=== PATIENT | male | born 1970 | race African-American/Black ===

== ENCOUNTER 2018-05-02 01:05 | Emergency (ER) | payer OTHER ==
[2018-05-02] MEDS ORDERED: LIDOCAINE/EPINEPHR/TETRACAINE 5 ML BOTTLE TOPICAL ONE (01:40)
[2018-05-02] MEDS ORDERED: AMOXIC-POT CLAV 875MG STARTER 2 EACH TABLET PO STA (02:06)
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
[2018-05-02] MEDS ORDERED: LIDOCAINE 1% INJ 10MG/ML (20 ML MDV) SQ STA (02:13)
[2018-05-02 02:51] VITALS: BP 159/72; PULSE 101; RESP 15; TEMP 100
== END 2018-05-02 02:46 | disposition home or self-care (01) ==
LOC: EC 01:05
DX: S01.511A Laceration without foreign body of lip, initial encounter (principal); S01.512A Laceration without foreign body of oral cavity, initial encounter; I10 Essential (primary) hypertension; F17.200 Nicotine dependence, unspecified, uncomplicated; Z79.899 Other long term (current) drug therapy; Y04.0XXA Assault by unarmed brawl or fight, initial encounter; Y93.89 Activity, other specified
CPT/HCPCS: 99284; 12013; J2001

== ENCOUNTER 2019-06-17 09:50 | Inpatient (IN) | payer OTHER ==
[2019-06-17] MEDS ORDERED: PANTOPRAZOLE 40 MG/10 ML VIAL IVP STA (10:12)
--- NOTE | 2019-06-17 10:36 | ED ---
General Adult HPI - General Chief complaint: Recheck/Abnormal Lab/Rx Stated complaint: Low Hemoglobin Time Seen by Provider: 06/17/19 10:12 Source: patient Mode of arrival: ambulatory Limitations: no limitations - History of Present Illness Initial comments: Dictation was produced using [employer] dictation software. please excuse any grammatical, word or spelling errors. Chief Complaint: 48-year-old male past medical history of asthma and hypertension presents with abnormal outpatient labs. History of Present Illness: She is a 48-year-old male presents with abnormal outpatient labs. Patient started began approximately one week ago when he was trying to donate plasma. He had labs performed and was told that he had a very low hematocrit. He was instructed to follow-up with his primary care physician. He had labs done by his PCP. The results came back last night. Told to come to the emergency department because his hemoglobin was 5. Patient has been feeling symptomatic for the last several days. Patient denies any nausea vomiting or abdominal pain. No extremity pain. Patient denies any black or runny stools. He did have an episode of profuse diarrhea that he attributed to food poisoning recently. The ROS documented in this emergency department record has been reviewed and confirmed by me. Those systems with pertinent positive or negative responses have been documented in the HPI. All other systems are other negative and/or noncontributory. PHYSICAL EXAM: General Impression: Alert and oriented x3, not in acute distress HEENT: Normocephalic atraumatic, extra-ocular movements intact, pupils equal and reactive to light bilaterally, mucous membranes moist. Cardiovascular: Heart regular rate and rhythm, S1&S2 audible, no murmurs, rubs or gallops Chest: Lungs clear to auscultation bilaterally, no rhonchi, no wheeze, no rales Abdomen: Bowel sounds present, abdomen soft, non-tender, non-distended, no o rganomegaly Musculoskeletal: Pulses present and equal in all extremities, no peripheral edema Motor: no focal deficits noted Neurological: CN II-XII grossly intact, no focal motor or sensory deficits noted Skin: Intact with no visualized rashes Psych: Normal affect and mood Rectal: No bleeding masses noted at the rectal orifice, no palpable internal hemorrhoids ED course: 48-year-old male presents with low hemoglobin seen on outpatient lab. Positive for symptomatic anemia. At this point there is no clear source of patient's bleeding. Cervical blood is negative. Vital signs upon arrival shows heart rate of 11, blood pressure 176/89, worse vital signs within acceptable limits. Laboratory evaluation obtained. Mild leukocytosis 12.8, hemoglobin of 4.4 with a hematocrit of 17.8. Normal platelet count. Metabolic panel is unremarkable there is a lactic acidosis of 2.8. Cardiac enzymes negative. Stool occult blood is negative. This point is unclear why patient is having anemia. No netheless patient is transfused 2 units of blood. Patient otherwise seems stable at this time. This concerned that maybe patient has some sort of chronic disease or severe iron deficiency anemia. Patient be admitted to cardiac telemetry with consultation to hematology. Discussed patient case Dr. Mooney is willing to accept patients care. EKG interpretation: Ventricular rate 94, normal sinus rhythm, SD interval 174, QRS 84, QTC 4:15. No SD prolongation, no QTC prolongation, no ST or T-wave c hanges noted. Overall, this EKG is unremarkable - Related Data Home Medications Medication Instructions Recorded Confirmed Albuterol Inhaler [Ventolin Hfa 2 puff INHALATION RT-Q4H PRN 06/17/19 06/17/19 Inhaler] Atorvastatin Calcium [Lipitor] 10 mg PO DAILY 06/17/19 06/17/19 Ergocalciferol [Vitamin D2] 50,000 unit PO MO 06/17/19 06/17/19 Fluticasone Nasal [place] [Flonase 1 spray EA NOSTRIL DAILY 06/17/19 06/17/19 Nasal [place]] Loratadine [Claritin] 10 mg PO DAILY 06/17/19 06/17/19 Losartan Potassium [Cozaar] 100 mg PO DAILY 06/17/19 06/17/19 Montelukast Sodium [Singulair] 10 mg PO DAILY 06/17/19 06/17/19 amLODIPine BESYLATE 10 mg PO DAILY 06/17/19 06/17/19 Allergies Allergy/AdvReac Type Severity Reaction Status Date / Time No Known Allergies Allergy Verified 06/17/19 10:47 Review of Systems ROS Statement: Those systems with pertinent positive or pertinent negative responses have been documented in the HPI. ROS Other: All systems not noted in ROS Statement are negative. Past Medical History Past Medical History: Asthma, Hypertension Additional Past Medical History / Comment(s): gout History of Any Multi-Drug Resistant Organisms: None Reported Past Surgical History: Appendectomy Additional Past Surgical History / Comment(s): eye surgery Past Psychological History: No Psychological Hx Reported Smoking Status: Current every day smoker Past Alcohol Use History: Occasional Past Drug Use History: Marijuana General Exam Limitations: no limitations Course Vital Signs 06/17/19 06/17/19 09:56 10:26 Temperature 98.2 F Pulse Rate 101 H Respiratory 18 20 Rate Blood Pressure 176/89 O2 Sat by Pulse 100 Oximetry Medical Decision Making - Lab Data Result diagrams: 06/17/19 10:20 06/17/19 10:20 Lab Results 06/17/19 06/17/19 06/17/19 Range/Units 10:20 10:20 10:20 WBC 12.8 H (3.8-10.6) k/uL RBC 2.98 L (4.30-5.90) m/uL Hgb 4.4 L* (13.0-17.5) gm/dL Hct 17.8 L* (39.0-53.0) % MCV 59.9 L (80.0-100.0) fL MCH 14.8 L (25.0-35.0) pg MCHC 24.7 L (31.0-37.0) g/dL RDW 20.3 H (11.5-15.5) % Plt Count 425 (150-450) k/uL Neutrophils % 74 % Lymphocytes % 16 % Monocytes % 7 % Eosinophils % 1 % Basophils % 0 % Neutrophils # 9.4 H (1.3-7.7) k/uL Lymphocytes # 2.0 (1.0-4.8) k/uL Monocytes # 0.8 (0-1.0) k/uL Eosinophils # 0.2 (0-0.7) k/uL Basophils # 0.0 (0-0.2) k/uL Manual Slide Review Performed Polychromasia Present Hypochromasia Marked Poikilocytosis Slight Anisocytosis Moderate Microcytosis Marked PT 10.2 (9.0-12.0) sec INR 0.9 (<1.2) APTT 21.4 L (22.0-30.0) sec Sodium 139 (137-145) mmol/L Potassium 4.0 (3.5-5.1) mmol/L Chloride 104 (98-107) mmol/L Carbon Dioxide 23 (22-30) mmol/L Anion Gap 12 mmol/L BUN 10 (9-20) mg/dL Creatinine 0.97 (0.66-1.25) mg/dL Est GFR (CKD-EPI)AfAm >90 (>60 ml/min/1.73 sqM) Est GFR (CKD-EPI)NonAf >90 (>60 ml/min/1.73 sqM) Glucose 139 H (74-99) mg/dL Plasma Lactic Acid Elie (0.7-2.0) mmol/L Calcium 9.8 (8.4-10.2) mg/dL Magnesium 2.5 H (1.6-2.3) mg/dL Total Bilirubin 0.4 (0.2-1.3) mg/dL AST 19 (17-59) U/L ALT 23 (21-72) U/L Alkaline Phosphatase 53 (38-126) U/L Troponin I (0.000-0.034) ng/mL Total Protein 7.3 (6.3-8.2) g/dL Albumin 4.4 (3.5-5.0) g/dL Stool Occult Blood (Negative) Blood Type Blood Type Confirm Blood Type Recheck Bld Type Recheck Status Antibody Screen Crossmatch Spec Expiration Date 06/17/19 06/17/19 06/17/19 Range/Units 10:20 10:20 10:20 WBC (3.8-10.6) k/uL RBC (4.30-5.90) m/uL Hgb (13.0-17.5) gm/dL Hct (39.0-53.0) % MCV (80.0-100.0) fL MCH (25.0-35.0) pg MCHC (31.0-37.0) g/dL RDW (11.5-15.5) % Plt Count (150-450) k/uL Neutrophils % % Lymphocytes % % Monocytes % % Eosinophils % % Basophils % % Neutrophils # (1.3-7.7) k/uL Lymphocytes # (1.0-4.8) k/uL Monocytes # (0-1.0) k/uL Eosinophils # (0-0.7) k/uL Basophils # (0-0.2) k/uL Manual Slide Review Polychromasia Hypochromasia Poikilocytosis Anisocytosis Microcytosis PT (9.0-12.0) sec INR (<1.2) APTT (22.0-30.0) sec Sodium (137-145) mmol/L Potassium (3.5-5.1) mmol/L Chloride (98-107) mmol/L Carbon Dioxide (22-30) mmol/L Anion Gap mmol/L BUN (9-20) mg/dL Creatinine (0.66-1.25) mg/dL Est GFR (CKD-EPI)AfAm (>60 ml/min/1.73 sqM) Est GFR (CKD-EPI)NonAf (>60 ml/min/1.73 sqM) Glucose (74-99) mg/dL Plasma Lactic Acid Elie 2.8 H* (0.7-2.0) mmol/L Calcium (8.4-10.2) mg/dL Magnesium (1.6-2.3) mg/dL Total Bilirubin (0.2-1.3) mg/dL AST (17-59) U/L ALT (21-72) U/L Alkaline Phosphatase (38-126) U/L Troponin I <0.012 (0.000-0.034) ng/mL Total Protein (6.3-8.2) g/dL Albumin (3.5-5.0) g/dL Stool Occult Blood (Negative) Blood Type A Positive Blood Type Confirm Blood Type Recheck No Previous Record Bld Type Recheck Status CABO Indicated Antibody Screen NEGATIVE Crossmatch See Detail Spec Expiration Date 06/20/2019231906/17/19 06/17/19 Range/Units 10:35 11:40 WBC (3.8-10.6) k/uL RBC (4.30-5.90) m/uL Hgb (13.0-17.5) gm/dL Hct (39.0-53.0) % MCV (80.0-100.0) fL MCH (25.0-35.0) pg MCHC (31.0-37.0) g/dL RDW (11.5-15.5) % Plt Count (150-450) k/uL Neutrophils % % Lymphocytes % % Monocytes % % Eosinophils % % Basophils % % Neutrophils # (1.3-7.7) k/uL Lymphocytes # (1.0-4.8) k/uL Monocytes # (0-1.0) k/uL Eosinophils # (0-0.7) k/uL Basophils # (0-0.2) k/uL Manual Slide Review Polychromasia Hypochromasia Poikilocytosis Anisocytosis Microcytosis PT (9.0-12.0) sec INR (<1.2) APTT (22.0-30.0) sec Sodium (137-145) mmol/L Potassium (3.5-5.1) mmol/L Chloride (98-107) mmol/L Carbon Dioxide (22-30) mmol/L Anion Gap mmol/L BUN (9-20) mg/dL Creatinine (0.66-1.25) mg/dL Est GFR (CKD-EPI)AfAm (>60 ml/min/1.73 sqM) Est GFR (CKD-EPI)NonAf (>60 ml/min/1.73 sqM) Glucose (74-99) mg/dL Plasma Lactic Acid Elie (0.7-2.0) mmol/L Calcium (8.4-10.2) mg/dL Magnesium (1.6-2.3) mg/dL Total Bilirubin (0.2-1.3) mg/dL AST (17-59) U/L ALT (21-72) U/L Alkaline Phosphatase (38-126) U/L Troponin I (0.000-0.034) ng/mL Total Protein (6.3-8.2) g/dL Albumin (3.5-5.0) g/dL Stool Occult Blood Negative (Negative) Blood Type Blood Type Confirm A Positive Blood Type Recheck Bld Type Recheck Status Antibody Screen Crossmatch Spec Expiration Date Disposition Clinical Impression: Anemia Disposition: ADMITTED IP TO THIS [facility] Condition: Critical Referrals: Annamaria Dee MD [Primary Care Provider] - 1-2 days Decision Time: 12:12
[2019-06-17 10:55] LABS: ALT 23 U/L (21-72); AST 19 U/L (17-59); African American GFR (CKD) >90 (>60 ml/min/1.73 sqM); Albumin 4.4 g/dL (3.5-5.0); Alkaline Phosphatase 53 U/L (38-126); Anion Gap 12 mmol/L; Blood Urea Nitrogen 10 mg/dL (9-20); Calcium 9.8 mg/dL (8.4-10.2); Carbon Dioxide 23 mmol/L (22-30); Chloride 104 mmol/L (98-107); Glucose 139 mg/dL (74-99); INR 0.9 (<1.2); Magnesium 2.5 mg/dL (1.6-2.3); Prothrombin Time 10.2 sec (9.0-12.0); Sodium 139 mmol/L (137-145); Total Bilirubin 0.4 mg/dL (0.2-1.3); Total Protein 7.3 g/dL (6.3-8.2)
--- NOTE | 2019-06-17 11:03 | XR ---
EXAMINATION TYPE: XR abdomen acute w cxr DATE OF EXAM: 06/17/2019 COMPARISON: NONE HISTORY: Pain TECHNIQUE: Frontal view of the chest and 2 views of the abdomen submitted. FINDINGS: Lungs are clear with no pleural effusion or pneumothorax. No overt failure. Heart size norm al. Bowel gas pattern nonspecific. Is a tiny calcification right hemipelvis to small characterize. IMPRESSION: Nonspecific abdomen with no evidence of obstruction. Tiny calcification right hemipelvis is indetermi nant. Correlate clinically if there suspicion for ureteral calculus.
[2019-06-17 11:18] LABS: Anisocytosis Moderate; Basophils % (A) 0 %; Eosinophils # (A) 0.2 k/uL (0-0.7); Eosinophils % (A) 1 %; Hypochromasia Marked; Lymphocytes % (A) 16 %; MCH 14.8 pg (25.0-35.0); MCHC 24.7 g/dL (31.0-37.0); MCV 59.9 fL (80.0-100.0); Mean Platelet Volume 6.7; Microcytosis Marked; Monocytes # (A) 0.8 k/uL (0-1.0); Monocytes % (A) 7 %; Neutrophils # (A) 9.4 k/uL (1.3-7.7); Neutrophils % (A) 74 %; Platelet Count 425 k/uL (150-450); Poikilocytosis Slight; RBC 2.98 m/uL (4.30-5.90); RDW 20.3 % (11.5-15.5); WBC 12.8 k/uL (3.8-10.6)
[2019-06-17 11:20] LABS: HCT 17.8 % (39.0-53.0); HGB 4.4 gm/dL (13.0-17.5)
[2019-06-17 11:24] LABS: Partial Thromboplastin Time 21.4 sec (22.0-30.0)
[2019-06-17 11:53] LABS: Polychromasia Present
[2019-06-17] MEDS ORDERED: ACETAMINOPHEN TAB 325 MG TAB PO PRN (12:09)
[2019-06-17] MEDS ORDERED: NALOXONE 0.4 MG/ML 1 ML VIAL IV PRN (12:09)
[2019-06-17] MEDS: SODIUM CHLORIDE 0.9% 1,000 ML IV SCH (12:16)
[2019-06-17 12:39] LABS: Appearance,Urine Clear (Clear); Bilirubin,Urine Negative (Negative); Blood,Urine Negative (Negative); Color,Urine Light Yellow; Glucose,Urine (UA) Negative (Negative); Ketones,Urine Negative (Negative); Leukocyte Esterase,Urine Negative (Negative); Nitrite,Urine Negative (Negative); Protein,Urine Negative (Negative); Specific Gravity,Urine 1.008 (1.001-1.035); Urobilinogen,Urine <2.0 mg/dL (<2.0)
[2019-06-17 13:14] VITALS: BMI 26.8
[2019-06-17] MEDS ORDERED: HYDROcodone/APAP 5-325MG 1 EACH TAB PO PRN (15:52)
--- NOTE | 2019-06-17 15:56 | P.CONS ---
<Jody Griffith - Last Filed: 06/17/19 15:48> History of Present Illness - Reason for Consult Consult date: 06/17/19 Anemia - Chief Complaint Symptomatic Anemia - History of Present Illness Ancef 48-year-old male patient who presents with symptomatic anemia. admission hemoglobin was 4.4stool for occult blood is negative denies any signs or sy mptoms of bleehe attempted to donate plasma and was found to be anemic therefore he was advised to undergo further evaluation in the er, he received 2 units of PRBC and admitted for further evaluationtherefore hematology has been consu Review of Systems A 14 point review of systems was assessed and completed and are all negative except for HPI Past Medical History Past Medical History: Asthma, Hyperlipidemia, Hypertension Additional Past Medical History / Comment(s): currently having gout in R great toe, sinus problems. History of Any Multi-Drug Resistant Organisms: None Reported Past Surgical History: Appendectomy Additional Past Surgical History / Comment(s): Eye injury with surgery as a te en. Past Anesthesia/Blood Transfusion Reactions: No Reported Reaction Past Psychological History: No Psychological Hx Reported Additional Psychological History / Comment(s): Pt resides with his mother and pt's 2 children. Pt is independent. Smoking Status: Current every day smoker Past Alcohol Use History: Occasional Additional Past Alcohol Use History / Comment(s): Pt started smoking in 2001 and is in the process of quitting. He smoked less than a ppd and now a pack lasts 2.5 days. Past Drug Use History: Marijuana Additional Drug Use History / Comment(s): Pt smokes marijuana or eats edibles on a daily basis. - Past Family History Father Family Medical History: CVA/TIA Additional Family Medical History / Comment(s): Hardening of the arteries. Father is . Mother Family Medical History: Diabetes Mellitus, Hypertension Medications and Allergies Home Medications Medication Instructions Recorded Confirmed Type Albuterol Inhaler [Ventolin Hfa 2 puff INHALATION RT-Q4H PRN 06/17/19 06/17/19 History Inhaler] Atorvastatin Calcium [Lipitor] 10 mg PO DAILY 06/17/19 06/17/19 History Ergocalciferol [Vitamin D2] 50,000 unit PO MO 06/17/19 06/17/19 History Fluticasone Nasal [place] [Flonase 1 spray EA NOSTRIL DAILY 06/17/19 06/17/19 History Nasal [place]] Loratadine [Claritin] 10 mg PO DAILY 06/17/19 06/17/19 History Losartan Potassium [Cozaar] 100 mg PO DAILY 06/17/19 06/17/19 History Montelukast Sodium [Singulair] 10 mg PO DAILY 06/17/19 06/17/19 History amLODIPine BESYLATE 10 mg PO DAILY 06/17/19 06/17/19 History Allergies Allergy/AdvReac Type Severity Reaction Status Date / Time No Known Allergies Allergy Verified 06/17/19 10:47 Physical Exam Vitals: Vital Signs Temp Pulse Pulse Resp BP BP Pulse Ox 06/17/19 15:22 97.9 F 92 20 159/75 98 06/17/19 14:51 98.9 F 86 20 160/80 06/17/19 13:35 98.4 F 83 16 167/84 98 06/17/19 12:35 99 F 84 18 170/89 06/17/19 12:00 81 18 150/81 100 06/17/19 10:26 20 06/17/19 09:56 98.2 F 101 H 18 176/89 100 Intake and Output 06/17/19 06/17/19 06/17/19 06:59 14:59 22:59 Intake Total 310 0 Balance 310 0 Intake: Blood Product 310 0 Rc As-1 Unit 0 [id number] Rc As-1 Unit 310 [id number] Other: Weight 78.925 kg physical exam Gen: Alert and Oriented, NAD Head: NCNT Neck Supple Heart RRR Lungs No increased effort CTA B Abdomen: S/ND/NT Ext: No Rash, No Edema, Equal Strength Psych: Calm and Coroperative Neuro: No Focal Deficits Noted. Results CBC & Chem 7: 06/17/19 10:20 06/17/19 10:20 Labs: Abnormal Lab Results - Last 24 Hours (Table) 06/17/19 06/17/19 06/17/19 Range/Units 10:20 10:20 10:20 WBC 12.8 H (3.8-10.6) k/uL RBC 2.98 L (4.30-5.90) m/uL Hgb 4.4 L* (13.0-17.5) gm/dL Hct 17.8 L* (39.0-53.0) % MCV 59.9 L (80.0-100.0) fL MCH 14.8 L (25.0-35.0) pg MCHC 24.7 L (31.0-37.0) g/dL RDW 20.3 H (11.5-15.5) % Neutrophils # 9.4 H (1.3-7.7) k/uL APTT 21.4 L (22.0-30.0) sec Glucose 139 H (74-99) mg/dL Plasma Lactic Acid Elie (0.7-2.0) mmol/L Magnesium 2.5 H (1.6-2.3) mg/dL Crossmatch 06/17/19 06/17/19 Range/Units 10:20 10:20 WBC (3.8-10.6) k/uL RBC (4.30-5.90) m/uL Hgb (13.0-17.5) gm/dL Hct (39.0-53.0) % MCV (80.0-100.0) fL MCH (25.0-35.0) pg MCHC (31.0-37.0) g/dL RDW (11.5-15.5) % Neutrophils # (1.3-7.7) k/uL APTT (22.0-30.0) sec Glucose (74-99) mg/dL Plasma Lactic Acid Elie 2.8 H* (0.7-2.0) mmol/L Magnesium (1.6-2.3) mg/dL Crossmatch See Detail Assessment and Plan Plan: Assessment and Recommendation: Normocytic Anemia: - No S/S bleeding - Full work-up ordered - Transfusion support, keep hemoglobin greater the 7 Leukocytosis: - Jacobs Culture work-up Review peripheral smear FUll WOrk-up Assess US abdomen liver and spleen Jody Griffith Physician Attest I have completed the full hisotry and physical and agree wit above dictation dictated as a scribe <Marshall Witt - Last Filed: 06/17/19 16:28> History of Present Illness - History of Present Illness As above. The patient has regular medical follow-ups at least once a year. His prior CBC was a year ago and was apparently normal according to him. He denied any personal or family history of blood related problems. He has noted small amounts of bright red blood in the stool, very intermittently. He does have a known history of hemorrhoids. No history of stomach or bowel surgery, or chronic GI inflammation. Review of Systems Constitutional: Reports fatigue Eyes: denies blurred vision, denies pain Ears: deny: decreased hearing, ear discharge, earache, tinnitus Ears, nose, mouth and throat: Denies headache, Denies sore throat Cardiovascular: Reports decreased exercise tolerance, Reports dyspnea on exertion Respiratory: Reports dyspnea Gastrointestinal: Reports hematochezia (known hemorrhoids) Genitourinary: Reports as per HPI Musculoskeletal: Denies myalgias Integumentary: Denies pruritus, Denies rash Neurological: Denies numbness, Denies weakness Psychiatric: Denies anxiety, Denies depression Endocrine: Denies fatigue, Denies weight change Hematologic/Lymphatic: Reports as per HPI Physical Exam Vitals: Vital Signs Temp Pulse Pulse Resp BP BP Pulse Ox 06/17/19 16:02 99.0 F 88 20 167/75 98 06/17/19 15:34 83 16 06/17/19 15:32 99.0 F 87 87 20 165/80 165/80 99 06/17/19 15:22 97.9 F 92 20 159/75 98 06/17/19 14:51 98.9 F 86 20 160/80 06/17/19 13:35 98.4 F 83 16 167/84 98 06/17/19 12:35 99 F 84 18 170/89 06/17/19 12:00 81 18 150/81 100 06/17/19 10:26 20 06/17/19 09:56 98.2 F 101 H 18 176/89 100 Intake and Output 06/17/19 06/17/19 06/17/19 06:59 14:59 22:59 Intake Total 310 0 Balance 310 0 Intake: Blood Product 310 0 Rc As-1 Unit 0 [id number] Rc As-1 Unit 310 [id number] Other: Weight 78.925 kg Results CBC & Chem 7: 06/17/19 10:20 06/17/19 10:20 Labs: Abnormal Lab Results - Last 24 Hours (Table) 06/17/19 06/17/19 06/17/19 Range/Units 10:20 10:20 10:20 WBC 12.8 H (3.8-10.6) k/uL RBC 2.98 L (4.30-5.90) m/uL Hgb 4.4 L* (13.0-17.5) gm/dL Hct 17.8 L* (39.0-53.0) % MCV 59.9 L (80.0-100.0) fL MCH 14.8 L (25.0-35.0) pg MCHC 24.7 L (31.0-37.0) g/dL RDW 20.3 H (11.5-15.5) % Neutrophils # 9.4 H (1.3-7.7) k/uL APTT 21.4 L (22.0-30.0) sec Glucose 139 H (74-99) mg/dL Plasma Lactic Acid Elie (0.7-2.0) mmol/L Magnesium 2.5 H (1.6-2.3) mg/dL Lactate Dehydrogenase (313-618) U/L Crossmatch 06/17/19 06/17/19 06/17/19 Range/Units 10:20 10:20 10:20 WBC (3.8-10.6) k/uL RBC (4.30-5.90) m/uL Hgb (13.0-17.5) gm/dL Hct (39.0-53.0) % MCV (80.0-100.0) fL MCH (25.0-35.0) pg MCHC (31.0-37.0) g/dL RDW (11.5-15.5) % Neutrophils # (1.3-7.7) k/uL APTT (22.0-30.0) sec Glucose (74-99) mg/dL Plasma Lactic Acid Elie 2.8 H* (0.7-2.0) mmol/L Magnesium (1.6-2.3) mg/dL Lactate Dehydrogenase 288 L (313-618) U/L Crossmatch See Detail Abdominal x-ray: report reviewed Assessment and Plan Plan: As above. Workup is in progress, but severe microcytosis, chronic blood loss is the most likely etiology. Chronic hemolysis with underlying hemoglobinopathy can have the same picture but is less likely. - Therefore recommend upper and lower endoscopy for further workup, in addition to ongoing lab work up.
[2019-06-17] MEDS: LOSARTAN 50 MG TAB PO SCH (16:12)
[2019-06-17] MEDS: amLODIPine 10 MG TAB PO SCH (16:12)
[2019-06-17 19:42] LABS: Iron Saturation 1.24 (15.00-50.00)
[2019-06-17 22:10] LABS: Anisocytosis Marked; Hypochromasia Marked; MCH 19.2 pg (25.0-35.0); Mean Platelet Volume 7.8; Microcytosis Marked; Platelet Count 415 k/uL (150-450); Poikilocytosis Marked; RBC 3.35 m/uL (4.30-5.90); WBC 13.3 k/uL (3.8-10.6)
[2019-06-17 22:17] LABS: MCV 68.6 fL (80.0-100.0); RDW 26.4 % (11.5-15.5)
[2019-06-18 00:17] LABS: Rheumatoid Factor 19 IU/mL (0-15)
[2019-06-18 00:23] LABS: Protein, Total 6.2 g/dL (6.2-8.2)
--- NOTE | 2019-06-18 01:17 | P.HPIM ---
History of Present Illness H&P Date: 06/17/19 Chief Complaint: Generalized weakness and fatigue Patient is a 48-year-old male with a known history of hypertension, hyperlipidemia, gout and history of hemorrhoids as well as currently every day smoker came to ER with complaints of tiredness for the past 1 week in 1 month. Patient states that approximately about one week ago he was trying to donate plasma where he had blood workup done and was found have low hemoglobin level. Patient was advised to follow-up with patient's primary care physician. Patient had CBC done on the of this month which showed hemoglobin level of 5.0 and was advised to go to ER for evaluation. Plan patient does have a history of hem orrhoids but no active bleeding at this time. Patient noticed blood clots in the stool about 2 weeks ago. Patient says that he does take Naprosyn for right foot gout pain. Apparently patient has been taking once daily for the past 2 weeks. Denied any abdominal pain. No hematemesis or melena. FOBT is negative now. Hemoglobin 4.4 on admission and significant microcytosis and elevated RDW Lactic acid 2.8 Ferritin level is 0.9 Review of Systems Constitutional: Patient denies any fever or chills . Generalized weakness and fatigue. Abdomen: Patient denied nausea vomiting and diarrhea and abdominal pain. Cardiovascular: Patient denies any chest pain or short of breath no palpitations. Respiratory: patient denied any cough is from production. No shortness of breath Neurologic: Patient denied any numbness or tingling headache. Musculoskeletal: Patient denies any complaints of joint swelling or deformity. Skin: Negative Psychiatric: Negative Endocrine: No heat or cold intolerance. No recent weight gain. Genitourinary: No dysuria or hematuria. All other 14 point ROS negative except the above Past Medical History Past Medical History: Asthma, Hyperlipidemia, Hypertension Additional Past Medical History / Comment(s): currently having gout in R great toe, sinus problems. History of Any Multi-Drug Resistant Organisms: None Reported Past Surgical History: Appendectomy Additional Past Surgical History / Comment(s): Eye injury with surgery as a teen. Past Anesthesia/Blood Transfusion Reactions: No Reported Reaction Past Psychological History: No Psychological Hx Reported Additional Psychological History / Comment(s): Pt resides with his mother and pt's 2 children. Pt is independent. Smoking Status: Current every day smoker Past Alcohol Use History: Occasional Additional Past Alcohol Use History / Comment(s): Pt started smoking in 2001 and is in the process of quitting. He smoked less than a ppd and now a pack lasts 2.5 days. Past Drug Use History: Marijuana Additional Drug Use History / Comment(s): Pt smokes marijuana or eats edibles on a daily basis. - Past Family History Father Family Medical History: CVA/TIA Additional Family Medical History / Comment(s): Hardening of the arteries. Father is . Mother Family Medical History: Diabetes Mellitus, Hypertension Medications and Allergies Home Medications Medication Instructions Recorded Confirmed Type Albuterol Inhaler [Ventolin Hfa 2 puff INHALATION RT-Q4H PRN 06/17/19 06/17/19 History Inhaler] Atorvastatin Calcium [Lipitor] 10 mg PO DAILY 06/17/19 06/17/19 History Ergocalciferol [Vitamin D2] 50,000 unit PO MO 06/17/19 06/17/19 History Fluticasone Nasal [place] [Flonase 1 spray EA NOSTRIL DAILY 06/17/19 06/17/19 History Nasal [place]] Loratadine [Claritin] 10 mg PO DAILY 06/17/19 06/17/19 History Losartan Potassium [Cozaar] 100 mg PO DAILY 06/17/19 06/17/19 History Montelukast Sodium [Singulair] 10 mg PO DAILY 06/17/19 06/17/19 History amLODIPine BESYLATE 10 mg PO DAILY 06/17/19 06/17/19 History Allergies Allergy/AdvReac Type Severity Reaction Status Date / Time No Known Allergies Allergy Verified 06/17/19 10:47 Physical Exam Vitals: Vital Signs Temp Pulse Resp BP Pulse Ox 06/17/19 12:35 99 F 84 18 170/89 06/17/19 12:00 81 18 150/81 100 06/17/19 10:26 20 06/17/19 09:56 98.2 F 101 H 18 176/89 100 Intake and Output 06/16/19 06/17/19 06/17/19 22:59 06:59 14:59 Intake Total 0 Balance 0 Intake: Blood Product 0 Rc As-1 Unit 0 [id number] Other: Weight 78.925 kg PHYSICAL EXAMINATION: Patient is lying in the bed comfortably, no acute distress, awake alert and oriented.. HEENT: Normocephalic. Neck is supple. Pupils reactive. Nostrils clear. Oral cavity is moist. Ears reveal no drainage. Neck reveals no JVD, carotid bruits, or thyromegaly. CHEST EXAMINATION: Trachea is central. Symmetrical expansion. Lung bl[place] clear to auscultation and percussion. CARDIAC: Normal S1, S2 with no gallops. No murmurs ABDOMEN: Soft. Bowel sounds normal. No organomegaly. No abdominal bruits. Extremities: reveal no edema. No clubbing or cyanosis Neurologically awake, alert, oriented x3 with well-coordinated movements. No focal deficits noted Skin: No rash or skin lesions. Psychiatric: Coperative. Nonsuicidal Musculoskeletal: No joint swelling or deformity. Normal range of motion. Results CBC & Chem 7: 06/17/19 21:50 06/17/19 10:20 Labs: Abnormal Lab Results - Last 24 Hours (Table) 06/17/19 06/17/19 06/17/19 Range/Units 10:20 10:20 10:20 WBC 12.8 H (3.8-10.6) k/uL RBC 2.98 L (4.30-5.90) m/uL Hgb 4.4 L* (13.0-17.5) gm/dL Hct 17.8 L* (39.0-53.0) % MCV 59.9 L (80.0-100.0) fL MCH 14.8 L (25.0-35.0) pg MCHC 24.7 L (31.0-37.0) g/dL RDW 20.3 H (11.5-15.5) % Neutrophils # 9.4 H (1.3-7.7) k/uL APTT 21.4 L (22.0-30.0) sec Glucose 139 H (74-99) mg/dL Plasma Lactic Acid Elie (0.7-2.0) mmol/L Magnesium 2.5 H (1.6-2.3) mg/dL Crossmatch 06/17/19 06/17/19 Range/Units 10:20 10:20 WBC (3.8-10.6) k/uL RBC (4.30-5.90) m/uL Hgb (13.0-17.5) gm/dL Hct (39.0-53.0) % MCV (80.0-100.0) fL MCH (25.0-35.0) pg MCHC (31.0-37.0) g/dL RDW (11.5-15.5) % Neutrophils # (1.3-7.7) k/uL APTT (22.0-30.0) sec Glucose (74-99) mg/dL Plasma Lactic Acid Elie 2.8 H* (0.7-2.0) mmol/L Magnesium (1.6-2.3) mg/dL Crossmatch See Detail Thrombosis Risk Factor Assmnt - DVT/VTE Prophylaxis DVT/VTE Prophylaxis: Pharmacologic Prophylaxis ordered - Choose All That Apply Any of the Below Risk Factors Present?: Yes Each Factor Represents 1 point: Age 41-60 years, Obesity (BMI >25) Other Risk Factors: No Other congenital or acquired thrombophilia - If yes, enter type in comment: No Thrombosis Risk Factor Assessment Total Risk Factor Score: 2 Thrombosis Risk Factor Assessment Level: Low Risk Assessment and Plan Assessment: Severe symptomatic anemia with hemoglobin of 4.4. 2 units of PRBC was ordered. Severe microcytic iron deficiency anemia. Rule out GI bleed. FOBT negative in the ER. Chronic blood loss anemia. Cannot exclude hemoglobinopathies. Hypertension Hyperlipidemia Nicotine addiction Occasional marijuana use Right great toe gout History of hemorrhoids DVT prophylaxis with SCDs. Plan: Patient be continued on IV hydration and 2 units of PRBC was ordered. Monitor H&H. Continue with IV PPI. Iron profile shows severe iron deficiency. Oncology and GI was consulted for further workup including possible EGD and colonoscopy as well. Continue to follow closely. Smoking cessation has been counseled extensively. Time with Patient: Greater than 30
[2019-06-18 03:48] LABS: Anisocytosis Marked; Basophils # (A) 0.1 k/uL (0-0.2); Basophils % (A) 1 %; Eosinophils # (A) 0.2 k/uL (0-0.7); Eosinophils % (A) 2 %; HGB 7.7 gm/dL (13.0-17.5); Hypochromasia Marked; Lymphocytes # (A) 2.4 k/uL (1.0-4.8); Lymphocytes % (A) 23 %; MCH 20.9 pg (25.0-35.0); MCHC 29.5 g/dL (31.0-37.0); MCV 70.8 fL (80.0-100.0); Mean Platelet Volume 7.4; Microcytosis Marked; Monocytes # (A) 0.8 k/uL (0-1.0); Monocytes % (A) 8 %; Neutrophils # (A) 6.6 k/uL (1.3-7.7); Neutrophils % (A) 64 %; Platelet Count 361 k/uL (150-450); Poikilocytosis Marked; RBC 3.67 m/uL (4.30-5.90); WBC 10.3 k/uL (3.8-10.6)
[2019-06-18 03:56] LABS: RDW 25.8 % (11.5-15.5)
[2019-06-18 07:28] LABS: HGB 6.4 gm/dL (13.0-17.5)
[2019-06-18] MEDS: ALBUTEROL NEBULIZED 2.5 MG/3 ML INHALATION PRN ×3 (07:56→21:08)
--- NOTE | 2019-06-18 08:25 | US ---
EXAMINATION TYPE: US abdomen complete DATE OF EXAM: 06/18/2019 COMPARISON: NONE CLINICAL HISTORY: 48-year-old male Assess spleen and liver. Severe anemia, patient states no abdomen pain or N/V, exam done portable. TECHNIQUE: Multiple sonographic images of the abdomen are obtained. FINDINGS: EXAM MEASUREMENTS: Liver Length: 18.6 cm Gallbladder Wall: 0.2 cm CBD: 0.3 cm Spleen: 8.7 cm Right Kidney: 9.3 x 4.2 x 4.5 cm Left Kidney: 9.8 x 5.1 x 5.5 cm Pancreas: visualized portions wnl, limited by overlying midline bowel gas Liver: Mildly enlarged. Slightly hypoechoic may be on technical basis. No focal lesion seen. Gallbladder: wnl Evidence for sonographic Paige's sign: no CBD: wnl Spleen: wnl Right Kidney: wnl Left Kidney: wnl Upper IVC: wnl Abd Aorta: visualized portions wnl, limited by overlying midline bowel gas IMPRESSION: 1. Mild hepatomegaly (18.6 cm). Slight hypoechoic appearance of the liver may be on a technical basis or could represent hepatitis. Correlate with LFTs and patient risk factors. 2. Normal size spleen at 8.7 cm.
[2019-06-18 08:49] LABS: Anisocytosis Marked; HCT 25.8 % (39.0-53.0); HGB 7.7 gm/dL (13.0-17.5); Hypochromasia Marked; MCH 21.1 pg (25.0-35.0); MCHC 29.7 g/dL (31.0-37.0); MCV 70.9 fL (80.0-100.0); Mean Platelet Volume 7.4; Microcytosis Marked; Platelet Count 351 k/uL (150-450); Poikilocytosis Marked; RBC 3.64 m/uL (4.30-5.90)
[2019-06-18] MEDS: PANTOPRAZOLE 40 MG/10 ML VIAL IVP SCH (09:39)
[2019-06-18] MEDS: SODIUM FERRIC GLUCONAT-SUCROSE 125 MG in SODIUM CHLORIDE 0.9% 100 ML IVPB SCH (09:39)
[2019-06-18] MEDS: LOSARTAN 50 MG TAB PO SCH (09:39)
[2019-06-18] MEDS: FLUTICASONE 50MCG/SPRAY NASAL 16GM EA NOSTRIL SCH (09:40)
[2019-06-18] MEDS: MONTELUKAST 10 MG TAB PO SCH (09:40)
[2019-06-18] MEDS: amLODIPine 10 MG TAB PO SCH (09:40)
[2019-06-18] MEDS: ATORVASTATIN 10 MG TAB PO SCH (09:40)
[2019-06-18] MEDS: LORATADINE 10 MG TAB PO SCH (09:40)
[2019-06-18] MEDS: SODIUM CHLORIDE 0.9% 1,000 ML IV SCH (11:04)
[2019-06-18 11:26] LABS: Immunoglobulin M 35.5 mg/dL (40.0-280.0)
--- NOTE | 2019-06-18 13:00 | CONS ---
CONSULTATION DATE OF SERVICE: 06/18/2019 REQUESTING PHYSICIAN: Dr. Acosta. REASON FOR CONSULTATION: Severe iron-deficiency anemia. HISTORY OF PRESENT ILLNESS: The patient is a 48-year-old male admitted to the hospital because of severe symptomatic anemia and hemoglobin of 4.4 g/dL. He saw his PCP, Dr. Annamaria Dee on an outpatient basis and had routine labs done and was told his hemoglobin was very low and advised to go to the emergency room. Came to the emergency room. Repeat CBC showed a hemoglobin of 4.4 and has received 3 units of blood transfusion. The patient denies any symptoms. He has been having progressive weakness for the last few months duration. He denies any abdominal pain. No nausea, vomiting. He has been having intermittent rectal bleeding for the last several months and he believed that was related to bleeding from internal hemorrhoids. He denies any heartburn. No prior history of peptic ulcer disease. No recent NSAID use. No prior history of peptic ulcer disease. No family history of colorectal neoplasia. No prior history of endoscopy. PAST SURGICAL HISTORY: Appendectomy. MEDICATIONS: At home, albuterol, atorvastatin, vitamin D2, Flonase nasal spray, Claritin, Cozaar, Singulair, and amlodipine. ALLERGIES: No known allergies. PAST MEDICAL HISTORY: Hypertension, hyperlipidemia, asthma, nasal allergies. FAMILY HISTORY: Father had CVA. Mother, diabetes mellitus. REVIEW OF SYSTEMS: CARDIOPULMONARY: No chest pain, shortness of breath. GENITOURINARY: No dysuria or hematuria. MUSCULOSKELETAL: Unremarkable. SKIN: Unremarkable. ENDOCRINE: Unremarkable. PSYCHIATRIC: Unremarkable. NEUROLOGY: Unremarkable. ENT/VISION: Unremarkable. CONSTITUTIONAL: Progressive fatigue for 4 months. No weight loss. No fever, chills, night sweats. HEMATOLOGY: Severe anemia. PHYSICAL EXAMINATION: Appears comfortable, in no apparent distress. Vital signs are stable, blood pressure is 132/59, pulse rate 70, temperature 98.2. HEENT: Examination unremarkable, conjunctivae are pale. Sclerae nonicteric. Oral cavity no lesions. NECK: No JVD or lymph node enlargement. CHEST: Clear to auscultation. HEART: Regular rate and rhythm. ABDOMEN: Soft. Bowel sounds are positive. No organomegaly. EXTREMITIES: No pedal edema. SKIN: No rashes. NEUROLOGIC: Alert and oriented x3. No focal deficits. LABS: WBC 12.8, hemoglobin 4.4, platelets 427, after 3 units hemoglobin today 7.7 g/dL. Iron studies show an iron of 6, TIBC 482, iron saturation 1.2% and ferritin 0.9. Stool Hemoccult negative. IMPRESSION: Severe iron deficiency anemia secondary to occult gastrointestinal blood loss. Clinically, no evidence of active bleeding. He does have intermittent rectal bleeding on and off for the last 3 months, which he thought is related to internal hemorrhoids. Never had this in the past. No prior history of peptic ulcer disease or recent NSAID use. Status post 3 units of blood transfusion and hemoglobin is up to 7.7 g/dL. RECOMMENDATIONS: I had a lengthy discussion the patient regarding further workup which will include an upper endoscopy as well as colonoscopy. I discussed with him the risks, benefits, and complications of procedure and he is agreeable to proceed with it tomorrow. In the meantime, he will be on a clear liquid diet and further recommendations will follow based on the endoscopy results. Thank you for this consultation. MAULIK / FRANCYN: [phone] /
[2019-06-18 14:41] LABS: Anisocytosis Marked; HCT 30.2 % (39.0-53.0); HGB 9.1 gm/dL (13.0-17.5); Hypochromasia Marked; MCH 22.1 pg (25.0-35.0); MCHC 30.2 g/dL (31.0-37.0); MCV 73.2 fL (80.0-100.0); Mean Platelet Volume 7.1; Microcytosis Marked; Platelet Count 367 k/uL (150-450); Poikilocytosis Marked; RBC 4.13 m/uL (4.30-5.90); WBC 10.7 k/uL (3.8-10.6)
[2019-06-18 14:47] LABS: RDW 25.5 % (11.5-15.5)
--- NOTE | 2019-06-18 15:02 | P.PN ---
Subjective Patient is a 48-year-old male with a known history of hypertension, hyperlipidemia, gout and history of hemorrhoids as well as currently every day roverto gonzalez came to ER with complaints of tiredness for the past 1 week in 1 month. Patient states that approximately about one week ago he was trying to donate plasma where he had blood workup done and was found have low hemoglobin level. Patient was advised to follow-up with patient's primary care physician. Patient had CBC done on the of this month which showed hemoglobin level of 5.0 and was advised to go to ER for evaluation. Plan patient does have a history of hemorrhoids but no active bleeding at this time. Patient noticed blood clots in the stool about 2 weeks ago. Patient says that he does take Naprosyn for right foot gout pain. Apparently patient has been taking once daily for the past 2 weeks. Denied any abdominal pain. No hematemesis or melena. FOBT is negative now. Hemoglobin 4.4 on admission and significant microcytosis and elevated RDW Lactic acid 2.8 Ferritin level is 0.9 06/18/2019 This is a pleasant 48 years old male who presents with severe anemia. His hem oglobin was corrected with blood transfusion from 6.4 up to 9.1 today. Dorsal flap showing mild leukocytosis of 10.7 K. Platelets within normal limits at 367. INR 0.9. Iron study showing evidence of iron deficiency anemia with iron low at 6 L, iron saturation is 1.2 which is low as well. And TIBC is elevated at 482. Lactic acid was elevated 2.8 coming back to normal at 1.7. However his creatinine is within normal limits at 0.9 GI and hematology oncology team were consulted. Patient will need to undergo endoscopy. Patient is already started on Protonix 40 mg IV daily. Review of systems Constitutional: Patient denies any fever or chills . Generalized weakness and fatigue. Abdomen: Patient denied nausea vomiting and diarrhea and abdominal pain. Cardiovascular: Patient denies any chest pain or short of breath no palpitations. Respiratory: patient denied any cough is from production. No shortness of breath Neurologic: Patient denied any numbness or tingling headache. Musculoskeletal: Patient denies any complaints of joint swelling or deformity. Skin: Negative Psychiatric: Negative Endocrine: No heat or cold intolerance. No recent weight gain. Genitourinary: No dysuria or hematuria. Active Medications Generic Name Dose Route Start Last Admin Trade Name Freq PRN Reason Stop Dose Admin Acetaminophen 650 mg 06/17/19 12:09 Tylenol Tab PO Q6HR PRN Mild Pain or Fever > 100.5 Hydrocodone Bitart/Acetaminophen 1 each 06/17/19 15:52 06/17/19 17:47 [place] 5-325 PO 1 each Q6HR PRN Administration Pain Albuterol Sulfate 2.5 mg 06/17/19 15:48 06/18/19 07:56 Ventolin Nebulized INHALATION 2.5 mg RT-Q4H PRN Administration Shortness Of Breath Amlodipine Besylate 10 mg 06/17/19 16:00 06/18/19 09:40 Norvasc PO 10 mg DAILY MENG Administration Atorvastatin Calcium 10 mg 06/18/19 09:00 06/18/19 09:40 Lipitor PO 10 mg DAILY MENG Administration Ergocalciferol 50,000 unit 06/20/19 09:00 Vitamin D2 PO MO MENG Fluticasone Propionate 1 spray 06/18/19 09:00 06/18/19 09:40 Flonase Nasal [place] EA NOSTRIL 1 spray DAILY MENG Administration Sodium Chloride 1,000 mls @ 20 mls/hr 06/17/19 12:15 06/18/19 11:04 Saline 0.9% IV Not Given .Q24H MENG Ferric Sodium Gluconate 125 mg 110 mls @ 100 mls/hr 06/18/19 09:00 06/18/19 09:39 / Sodium Chloride IVPB 06/20/19 10:05 100 mls/hr DAILY MENG Administration Loratadine 10 mg 06/18/19 09:00 06/18/19 09:40 Claritin PO 10 mg DAILY MENG Administration Losartan Potassium 100 mg 06/17/19 16:00 06/18/19 09:39 Cozaar PO 100 mg DAILY MENG Administration Montelukast Sodium 10 mg 06/18/19 09:00 06/18/19 09:40 Singulair PO 10 mg DAILY MENG Administration Naloxone HCl 0.2 mg 06/17/19 12:09 Narcan IV Q2M PRN Opioid Reversal Pantoprazole Sodium 40 mg 06/18/19 09:00 06/18/19 09:39 Protonix IVP 40 mg DAILY MENG Administration Polyethylene Glycol/Electrolytes 4,000 ml 06/18/19 16:00 Golytely Lavage PO 06/18/19 16:01 ONCE ONE Objective - Vital Signs Vital signs: Vital Signs Temp 98.3 F 06/18/19 13:33 Pulse 78 06/18/19 13:33 Resp 20 06/18/19 13:33 BP 144/66 06/18/19 13:33 Pulse Ox 100 06/18/19 11:37 Intake & Output 06/17/19 06/18/19 06/18/19 18:59 06:59 18:59 Intake Total 0859 569 5144 Output Total 1050 750 Balance 1100 -700 400 Weight 78.925 kg 75 kg Intake: Intake, IV Titration 40 Amount Sodium Chloride 0.9% 1, 40 000 ml @ 20 mls/hr IV . Q24H [facility] Rx#:[id number] Oral 480 840 Blood Product 620 310 310 Rc As-1 Unit 310 [id number] Rc As-1 Unit 310 [id number] Rc As-1 Unit 310 [id number] Rc As-1 Unit 310 [id number] Output: Urine 1050 750 Other: # Voids 1 - Exam GENERAL: The patient is alert and oriented x3, not in any acute distress. Well developed, well nourished. HEENT: Pupils are round and equally reacting to light. EOMI. No scleral icterus. No conjunctival pallor. Normocephalic, atraumatic. No pharyngeal erythema. No thyromegaly. CARDIOVASCULAR: S1 and S2 present. No murmurs, rubs, or gallops. PULMONARY: Chest is clear to auscultation, no wheezing or crackles. ABDOMEN: Soft, nontender, nondistended, normoactive bowel sounds. No palpable organomegaly. MUSCULOSKELETAL: No joint swelling or deformity. EXTREMITIES: No cyanosis, clubbing, or pedal edema. NEUROLOGICAL: Gross neurological examination did not reveal any focal deficits. SKIN: No rashes. - Labs CBC & Chem 7: 06/18/19 14:28 06/17/19 10:20 Labs: Abnormal Lab Results - Last 24 Hours (Table) 06/17/19 06/17/19 06/17/19 Range/Units 10:20 10:20 10:29 WBC (3.8-10.6) k/uL RBC (4.30-5.90) m/uL Hgb (13.0-17.5) gm/dL Hct (39.0-53.0) % MCV (80.0-100.0) fL MCH (25.0-35.0) pg MCHC (31.0-37.0) g/dL RDW (11.5-15.5) % Iron 6 L (65-175) ug/dL TIBC 482 H (228-460) ug/dL Iron Saturation 1.24 L (15.00-50.00) Ferritin 0.9 L (22.0-322.0) ng/mL Lactate Dehydrogenase 288 L (313-618) U/L IgM (40.0-280.0) mg/dL Rheumatoid Factor (0-15) IU/mL Crossmatch See Detail 06/17/19 06/17/19 06/17/19 Range/Units 16:02 16:02 21:50 WBC 13.3 H (3.8-10.6) k/uL RBC 3.35 L (4.30-5.90) m/uL Hgb 6.4 L* D (13.0-17.5) gm/dL Hct 23.0 L (39.0-53.0) % MCV 68.6 L D (80.0-100.0) fL MCH 19.2 L (25.0-35.0) pg MCHC 28.0 L (31.0-37.0) g/dL RDW 26.4 H (11.5-15.5) % Iron (65-175) ug/dL TIBC (228-460) ug/dL Iron Saturation (15.00-50.00) Ferritin (22.0-322.0) ng/mL Lactate Dehydrogenase (313-618) U/L IgM 35.5 L (40.0-280.0) mg/dL Rheumatoid Factor 19 H (0-15) IU/mL Crossmatch 06/18/19 06/18/19 06/18/19 Range/Units 03:28 08:39 14:28 WBC 11.0 H 10.7 H (3.8-10.6) k/uL RBC 3.67 L 3.64 L 4.13 L (4.30-5.90) m/uL Hgb 7.7 L 7.7 L 9.1 L (13.0-17.5) gm/dL Hct 26.0 L 25.8 L 30.2 L (39.0-53.0) % MCV 70.8 L 70.9 L 73.2 L (80.0-100.0) fL MCH 20.9 L 21.1 L 22.1 L (25.0-35.0) pg MCHC 29.5 L 29.7 L 30.2 L (31.0-37.0) g/dL RDW 25.8 H 26.0 H 25.5 H (11.5-15.5) % Iron (65-175) ug/dL TIBC (228-460) ug/dL Iron Saturation (15.00-50.00) Ferritin (22.0-322.0) ng/mL Lactate Dehydrogenase (313-618) U/L IgM (40.0-280.0) mg/dL Rheumatoid Factor (0-15) IU/mL Crossmatch Assessment and Plan Assessment: Severe symptomatic anemia Current deficiency anemia Elevated lactic acid, resolved Chronic blood loss anemia. Cannot exclude hemoglobinopathies. Hypertension Hyperlipidemia Nicotine addiction Occasional marijuana use Right great toe gout History of hemorrhoids DVT prophylaxis with SCDs. Plan: Patient is 48 years old male who presents with severe anemia. Patient Mo is a status post blood transfusion. nitor H&H. Continue with IV PPI. Iron profile shows severe iron deficiency. Oncology and GI was consulted for further workup including possible EGD and colonoscopy as well. Continue to follow closely. Smoking cessation has been counseled extensively.
[2019-06-18] MEDS ORDERED: PEG 3350-NA SULF,BICARB,CL/KCL 4,000 ML BOTTLE PO ONE (16:00)
[2019-06-18 21:23] LABS: Anisocytosis Marked; HCT 29.5 % (39.0-53.0); HGB 9.1 gm/dL (13.0-17.5); Hypochromasia Marked; MCH 22.7 pg (25.0-35.0); MCHC 30.9 g/dL (31.0-37.0); MCV 73.6 fL (80.0-100.0); Mean Platelet Volume 8.4; Microcytosis Marked; Platelet Count 397 k/uL (150-450); Poikilocytosis Marked; RBC 4.01 m/uL (4.30-5.90); WBC 14.3 k/uL (3.8-10.6)
[2019-06-18 21:28] LABS: RDW 25.4 % (11.5-15.5)
[2019-06-19 06:37] LABS: Anisocytosis Marked; Basophils # (A) 0.1 k/uL (0-0.2); Basophils % (A) 1 %; Eosinophils # (A) 0.2 k/uL (0-0.7); Eosinophils % (A) 2 %; HCT 25.8 % (39.0-53.0); HGB 7.7 gm/dL (13.0-17.5); Hypochromasia Marked; Lymphocytes % (A) 18 %; MCH 21.9 pg (25.0-35.0); MCHC 29.8 g/dL (31.0-37.0); MCV 73.2 fL (80.0-100.0); Mean Platelet Volume 8.6; Microcytosis Marked; Monocytes # (A) 0.8 k/uL (0-1.0); Monocytes % (A) 7 %; Neutrophils # (A) 7.8 k/uL (1.3-7.7); Neutrophils % (A) 70 %; Platelet Count 337 k/uL (150-450); Poikilocytosis Marked; RBC 3.53 m/uL (4.30-5.90); WBC 11.2 k/uL (3.8-10.6)
[2019-06-19 07:10] LABS: RDW 26.3 % (11.5-15.5)
[2019-06-19] MEDS: ALBUTEROL NEBULIZED 2.5 MG/3 ML INHALATION PRN (07:30)
[2019-06-19] MEDS ORDERED: PROPOFOL 10 MG/ML 20 ML VIAL IV ONE (07:58)
[2019-06-19] MEDS ORDERED: LIDOCAINE 1% INJ 10MG/ML (20 ML MDV) ONE (07:58)
[2019-06-19] MEDS ORDERED: IV FLUID CONTINUATION 300 ML IV ONE (07:58)
[2019-06-19 08:02] VITALS: TEMP 97.7
[2019-06-19 08:31] LABS: Mixed Population RBC Present; Polychromasia Present
--- NOTE | 2019-06-19 08:34 | P.PCN ---
Date of Procedure: 06/19/19 Procedure(s) Performed: Brief history: Patient is a pleasant 48-year-old -[place] male admitted hospital with severe symptomatic anemia and hemoglobin of 4.4 g/dL he received 3 units of PRBC transfusion. Hemoglobin today is 8.7 g/dL. His been having intermittent rectal bleeding. In view of the iron deficiency anemia he is scheduled for an elective upper endoscopy as well as colonoscopy . Procedure performed: Esophagogastroduodenoscopy with biopsy Colonoscopy Preoperative diagnosis: Iron deficiency anemia/intermittent rectal bleeding Anesthesia: MAC Procedure: After informed consent was obtained from the patient was brought into the endoscopy unit and IV sedation was administered by anesthesia under continuous monitoring. Initially upper endoscopy was done. The Olympus GF 160 video endoscope was inserted inserted into the mouth and esophagus intubated without any difficulty and was gradually advanced into the stomach and duodenum and carefully examined. The bulb and second part of the duodenum appeared normal. Biopsies were done from the duodenum to rule out celiac disease. The scope was then withdrawn into the stomach adequately insufflated with air and upon careful examination the antrum and body, cardia and fundus appeared normal. The scope was then withdrawn into the esophagus. The GE junction was located at 40 cm to the incisors. It appeared regular with no erythema erosions or ulcerations. There were scattered small whitish exudates noted throughout the entire esophagus suspicious for Alyse esophagitis and biopsies were done from this area. Rest of the esophagus appeared normal. Patient tolerated the procedure well. At this time the patient continued to remain sedation. Initial digital rectal examination was normal. Olympus CF 160 video colonoscope was then inserted into the rectum and gradually advanced to the cecum without any difficulty. Careful examination was performed as the scope was gradually being withdrawn. The prep was excellent. The cecum, ascending colon, transverse colon, descending colon, sigmoid colon and rectum appeared normal. Retroflexion was performed in the rectum and grade 2 internal hemorrhoids were noted and one of the hemorrhoid appears to be prolapsing causing rectal bleeding. No active bleeding noted the time of examination. Patient tolerated the procedure well. Impression: 1. Upper endoscopy revealed scattered small whitish exudates in the esophagus suspicious for Alyse esophagitis status post multiple biopsies 2. Colonoscopy revealed a 2 internal hemorrhoids with one of the hemorrhoids that appears to be the cause of bleeding. No evidence of colorectal neoplasia Recommendations: Findings of this examination were discussed with the patient.. He was advised to follow with the biopsy results. Diet will be advanced as tolerated. He can be discharged home today with outpatient follow-up in 2 weeks. He was advised to avoid straining and constipation.
[2019-06-19] MEDS: ATORVASTATIN 10 MG TAB PO SCH (09:04)
[2019-06-19] MEDS: amLODIPine 10 MG TAB PO SCH (09:04)
[2019-06-19] MEDS: LOSARTAN 50 MG TAB PO SCH (09:04)
[2019-06-19] MEDS: MONTELUKAST 10 MG TAB PO SCH (09:04)
[2019-06-19] MEDS: FLUTICASONE 50MCG/SPRAY NASAL 16GM EA NOSTRIL SCH (09:05)
[2019-06-19] MEDS: SODIUM FERRIC GLUCONAT-SUCROSE 125 MG in SODIUM CHLORIDE 0.9% 100 ML IVPB SCH (09:05)
[2019-06-19] MEDS: PANTOPRAZOLE 40 MG/10 ML VIAL IVP SCH (09:05)
[2019-06-19] MEDS: LORATADINE 10 MG TAB PO SCH (09:05)
[2019-06-19 10:43] VITALS: RESP 20
--- NOTE | 2019-06-19 10:43 | P.PN ---
Subjective Progress Note Date: 06/19/19 The patient is status post EGD. He states that last night he had obvious hemorrhoidal bleeding while straining at stool. He has not had any this a.m. P Objective - Vital Signs Vital signs: Vital Signs Temp 97.7 F 06/19/19 04:00 Pulse 72 06/19/19 07:44 Resp 18 06/19/19 04:00 BP 158/76 06/19/19 04:00 Pulse Ox 98 06/19/19 04:00 Intake & Output 06/18/19 06/19/19 06/19/19 18:59 06:59 18:59 Intake Total 1150 120 200 Output Total 1200 Balance -50 120 200 Weight 75.3 kg Intake: IV 200 Intake, IV Titration 120 Amount Sodium Chloride 0.9% 1, 120 000 ml @ 20 mls/hr IV . Q24H MENG Rx#:[id number] Oral 840 Blood Product 310 Rc As-1 Unit 310 [id number] Output: Urine 1200 Other: # Bowel Movements 6 - Constitutional General appearance: Present: no acute distress - EENT Eyes: Present: EOMI ENT: Present: hearing grossly normal, normal oropharynx - Respiratory Respiratory: bilateral: CTA - Cardiovascular Rhythm: regular Heart sounds: normal: S1, S2 - Gastrointestinal General gastrointestinal: Present: normal bowel sounds, soft - Integumentary Integumentary: Present: normal - Neurologic Neurologic: Present: CNII-XII intact - Musculoskeletal Musculoskeletal: Present: strength equal bilaterally - Psychiatric Psychiatric: Present: A&O x's 3, appropriate affect - Labs CBC & Chem 7: 06/19/19 06:02 06/17/19 10:20 Labs: Abnormal Lab Results - Last 24 Hours (Table) 06/17/19 06/17/19 06/18/19 Range/Units 10:20 16:02 14:28 WBC 10.7 H (3.8-10.6) k/uL RBC 4.13 L (4.30-5.90) m/uL Hgb 9.1 L (13.0-17.5) gm/dL Hct 30.2 L (39.0-53.0) % MCV 73.2 L (80.0-100.0) fL MCH 22.1 L (25.0-35.0) pg MCHC 30.2 L (31.0-37.0) g/dL RDW 25.5 H (11.5-15.5) % Neutrophils # (1.3-7.7) k/uL IgM 35.5 L (40.0-280.0) mg/dL Crossmatch See Detail 06/18/19 06/19/19 Range/Units 20:52 06:02 WBC 14.3 H 11.2 H (3.8-10.6) k/uL RBC 4.01 L 3.53 L (4.30-5.90) m/uL Hgb 9.1 L 7.7 L (13.0-17.5) gm/dL Hct 29.5 L 25.8 L (39.0-53.0) % MCV 73.6 L 73.2 L (80.0-100.0) fL MCH 22.7 L 21.9 L (25.0-35.0) pg MCHC 30.9 L 29.8 L (31.0-37.0) g/dL RDW 25.4 H 26.3 H (11.5-15.5) % Neutrophils # 7.8 H (1.3-7.7) k/uL IgM (40.0-280.0) mg/dL Crossmatch Assessment and Plan (1) Iron deficiency anemia due to chronic blood loss Narrative/Plan: The patient's labs confirms severe iron deficiency. Therefore the patient appears to have iron deficiency anemia likely due to chronic GI blood loss. He is status post EGD and colonoscopy. He was found to have some whitish exudates in the stomach suggestive of possible candidiasis. Biopsy is pending. He was a lso noted to have hemorrhoids. He does have a history of hemorrhoidal type bleeding off and on chronically, and had more significant bleeding yesterday. The lab results, as well as endoscopy findings and implications were discussed with him in detail. He was advised that while it is certainly possible that his severe iron deficiency is due to hemorrhoidal blood loss, that by itself is a comparatively rare cause for anemia of this degree. Therefore another cause such as small bowel AVMs related blood loss cannot be ruled out. - Agree with the patient receiving IV iron. - Hold off on starting by mouth iron, due to his hemorrhoids the - Recommend a surgical consult for the hemorrhoids. The patient can have actual treatment as an outpatient. He is agreeable to that as he does want to go home. - He was advised that the IV and would take about 3-4 weeks for peak effect. I would therefore recommend office follow-up for repeat labs in about 3-4 weeks. - He was advised that he continues to have recurrent drops in hemoglobin/iron despite treatment of hemorrhoids, then that would indicate that he has another source, most likely small bowel AVMs. In that case the mainstay of treatment would be continued monitoring and iron supplementation on an ongoing basis Current Visit: Yes Status: Acute Code(s): D50.0 - IRON DEFICIENCY ANEMIA SECONDARY TO BLOOD LOSS (CHRONIC) SNOMED Code(s): 563365738 Plan: Okay to discharge from our standpoint whenever felt to be okay by the admitting service and other consult
[2019-06-19] MEDS: SODIUM CHLORIDE 0.9% 1,000 ML IV SCH (12:16)
--- NOTE | 2019-06-19 14:21 | P.PN ---
Subjective Patient is a 48-year-old male with a known history of hypertension, hyperlipidemia, gout and history of hemorrhoids as well as currently every day roverto gonzalez came to ER with complaints of tiredness for the past 1 week in 1 month. Patient states that approximately about one week ago he was trying to donate plasma where he had blood workup done and was found have low hemoglobin level. Patient was advised to follow-up with patient's primary care physician. Patient had CBC done on the 18 of this month which showed hemoglobin level of 5.0 and was advised to go to ER for evaluation. Plan patient does have a history of hemorrhoids but no active bleeding at this time. Patient noticed blood clots in the stool about 2 weeks ago. Patient says that he does take Naprosyn for right foot gout pain. Apparently patient has been taking once daily for the past 2 weeks. Denied any abdominal pain. No hematemesis or melena. FOBT is negative now. Hemoglobin 4.4 on admission and significant microcytosis and elevated RDW Lactic acid 2.8 Ferritin level is 0.9 06/18/2019 This is a pleasant 48 years old male who presents with severe anemia. His hem oglobin was corrected with blood transfusion from 6.4 up to 9.1 today. Dorsal flap showing mild leukocytosis of 10.7 K. Platelets within normal limits at 367. INR 0.9. Iron study showing evidence of iron deficiency anemia with iron low at 6 L, iron saturation is 1.2 which is low as well. And TIBC is elevated at 482. Lactic acid was elevated 2.8 coming back to normal at 1.7. However his creatinine is within normal limits at 0.9 GI and hematology oncology team were consulted. Patient will need to undergo endoscopy. Patient is already started on Protonix 40 mg IV daily. 06/19/2019 Patient underwent EGD and colonoscopy today with showing whitish exudates in the esophagus suspicious for Alyse esophagitis, status post biopsies and colonoscopy showing internal hemorrhoids BECAUSE of the bleeding. His blood pressure 146/88, heart rate 71, patient is afebrile. Patient has leukocytosis of 11.2 K. Patient hemoglobin dropped today from 9.1 down to 7.7. Actually has been stable for the last 2 days at 9.1. Patient admits that he has frequent bowel movement due to the GI preparation which might contribute to worsening hemorrhoidal bleeding. Oncology team recommended surgical consult. Surgical consult was called in view of drop of his hemoglobin, Dr. Childs the surgeon weatherization operations manager was going to evaluate the patient later on, patient did not want to leave and stated otherwise he will leave AMA. I offered him another surgical consult, although the patient did not show much interest in that. Dr. medley has been contacted and stated he will evaluate the patient tomorrow unless he is actively bleeding. Although patient was not having active bleeding when I saw the patient but the recurrent internal hemorrhoids bleeding with a drop in hemoglobin is concerning, and since the patient came with severe anemia with hemoglobin down to 4.4 upon admission it was felt that the risks of discharge patient prior to surgical evaluation has more risks than benefits. Risks, benefits and alternatives are explained to the patient including but not limited to the risks of continuous/recurrent bleeding, severe anemia, organ dysfunction and or . Patient verbalized understanding however he refused to stay until surgical team evaluated the patient prior To discharge. Patient is also aware that his insurance company might reject to pay for his stay if he signed leaving AMA. Despite I had lengthy discussion with the patient however he was adamant not to stay in the hospital and wanted to leave Patient states that he longo concerns with his family and his sons so he wanted to leave . Patient informed if he changes his mind of he develop worsening symptoms to call 911 on come to emergency room. Based upon my evaluation patient has capacity to make medical decision Surgical consult still pending in case patient decided to stay. Objective - Vital Signs Vital signs: Vital Signs Temp 97.7 F 06/19/19 04:00 Pulse 71 06/19/19 08:00 Resp 20 06/19/19 08:00 BP 146/88 06/19/19 08:00 Pulse Ox 100 06/19/19 08:00 Intake & Output 06/18/19 06/19/19 06/19/19 18:59 06:59 18:59 Intake Total 1150 120 200 Output Total 1200 Balance -50 120 200 Weight 75.3 kg Intake: IV 200 Intake, IV Titration 120 Amount Sodium Chloride 0.9% 1, 120 000 ml @ 20 mls/hr IV . Q24H MENG Rx#:[id number] Oral 840 Blood Product 310 Rc As-1 Unit 310 [id number] Output: Urine 1200 Other: # Bowel Movements 6 - Exam GENERAL: The patient is alert and oriented x3, not in any acute distress. Well developed, well nourished. HEENT: Pupils are round and equally reacting to light. EOMI. No scleral icterus. No conjunctival pallor. Normocephalic, atraumatic. No pharyngeal erythema. No thyromegaly. CARDIOVASCULAR: S1 and S2 present. No murmurs, rubs, or gallops. PULMONARY: Chest is clear to auscultation, no wheezing or crackles. ABDOMEN: Soft, nontender, nondistended, normoactive bowel sounds. No palpable organomegaly. MUSCULOSKELETAL: No joint swelling or deformity. EXTREMITIES: No cyanosis, clubbing, or pedal edema. NEUROLOGICAL: Gross neurological examination did not reveal any focal deficits. SKIN: No rashes. - Labs CBC & Chem 7: 06/19/19 06:02 06/17/19 10:20 Labs: Abnormal Lab Results - Last 24 Hours (Table) 06/18/19 06/18/19 06/19/19 Range/Units 14:28 20:52 06:02 WBC 10.7 H 14.3 H 11.2 H (3.8-10.6) k/uL RBC 4.13 L 4.01 L 3.53 L (4.30-5.90) m/uL Hgb 9.1 L 9.1 L 7.7 L (13.0-17.5) gm/dL Hct 30.2 L 29.5 L 25.8 L (39.0-53.0) % MCV 73.2 L 73.6 L 73.2 L (80.0-100.0) fL MCH 22.1 L 22.7 L 21.9 L (25.0-35.0) pg MCHC 30.2 L 30.9 L 29.8 L (31.0-37.0) g/dL RDW 25.5 H 25.4 H 26.3 H (11.5-15.5) % Neutrophils # 7.8 H (1.3-7.7) k/uL Assessment and Plan Assessment: Severe symptomatic anemia iron deficiency anemia Elevated lactic acid, resolved Internal hemorrhoids, which is the most likely source of bleeding Esophageal candidiasis. Hypertension Hyperlipidemia Nicotine addiction Occasional marijuana use Right great toe gout History of hemorrhoids DVT prophylaxis with SCDs. Plan: Patient is 48 years old male who presents with severe anemia. Patient underwent EGD and colonoscopy showing internal hemorrhoids. Surgical consult is called. Also going to call infectious disease consult for Alyse esophagitis. However patient does not want to finish therapy and see another specialist and he wants to leave signing AMA. Patient was informed about the risks of leaving AMA, including risk for his health plus possibly insurance will not pay for his stay ,and he is aware of that. See above for more details. Biopsy results of his EGD/colonoscopy are pending. Patient informed to follow the biopsy results.
[2019-06-19 14:26] VITALS: BP 144/72; PULSE 94
--- NOTE | 2019-06-19 23:39 | P.DS ---
Providers Date of admission: 06/17/19 12:09 Attending physician: Jacqueline Mooney Consults: 06/17/19 12:09 Consult Physician Routine Consulting Provider: Marshall Witt Consult Reason/Comments: anemia Do you want consulting provider notified?: Yes 06/18/19 00:56 Consult Physician Routine Consulting Provider: Yee Pennington Consult Reason/Comments: Anemia Do you want consulting provider notified?: Yes, Notify in am 06/19/19 10:44 Consult Physician Routine Consulting Provider: Corey Childs Consult Reason/Comments: Hemorrhoids Do you want consulting provider notified?: Yes 06/19/19 12:45 Consult Physician Urgent Consulting Provider: Lamonte Allen Consult Reason/Comments: hemorrhoids Do you want consulting provider notified?: Yes 06/19/19 14:21 Consult Physician Urgent Consulting Provider: Danielle Echeverria Consult Reason/Comments: Alyse esophagitis Do you want consulting provider notified?: Yes Primary care physician: [facility] Course: patient signed himself out by leaving AMA, pt was not discharged Dx: GI bleed , secondary to internal hemorrhoids. not fully evaluated and pt left AMA severe anemia , present upon admission dropping hemoglobin, unstable possible esophageal candiditis leukocytosis other medical problems ( see previous notes) Hospital course this is a pleasant 48 yo M who presents with low Hb of 4.4 upon admission that needed blood transfusion, Hb improved up to 9.1 however his Hemoglobin dropped again today to 7.7 today , although pt attributed this drop in his Hemoglobin to the several bowel movements he had yesterday during the bowl preparation , it was felt unsafe for the pt to be discharged home today while there is active drop in hemoglobin and been not stable yet. i had lengthy discussion with pt regarding staying in the hospital and the risks explained to him several times, he showed understanding however he insisted on leaving AMA. ( see previous note for more details) surgical consult was called for him and he made aware of this but he did not want to wait for it. ( i called 2 surgeons consults for him so they might see him sooner than later) also he had EGD/colonoscopy which showed possible esophageal Alyse infection and biopsies were taken. ID consult called. pt left AMA before i have a chance to discuss it with him in details. pt had medical capacity to make decision upon my evaluation. Patient Condition at Discharge: Critical Plan - Discharge Summary Discharge Rx Participant: No New Discharge Prescriptions: No Action Loratadine [Claritin] 10 mg PO DAILY Ergocalciferol [Vitamin D2] 50,000 unit PO MO Montelukast Sodium [Singulair] 10 mg PO DAILY Losartan Potassium [Cozaar] 100 mg PO DAILY Fluticasone Nasal [place] [Flonase Nasal [place]] 1 spray EA NOSTRIL DAILY amLODIPine BESYLATE 10 mg PO DAILY Atorvastatin Calcium [Lipitor] 10 mg PO DAILY Albuterol Inhaler [Ventolin Hfa Inhaler] 2 puff INHALATION RT-Q4H PRN PRN Reason: Shortness Of Breath Discharge Medication List Albuterol Inhaler [Ventolin Hfa Inhaler] 2 puff INHALATION RT-Q4H PRN 06/17/19 [History] Atorvastatin Calcium [Lipitor] 10 mg PO DAILY 06/17/19 [History] Ergocalciferol [Vitamin D2] 50,000 unit PO MO 06/17/19 [History] Fluticasone Nasal [place] [Flonase Nasal [place]] 1 spray EA NOSTRIL DAILY 06/17/19 [History] Loratadine [Claritin] 10 mg PO DAILY 06/17/19 [History] Losartan Potassium [Cozaar] 100 mg PO DAILY 06/17/19 [History] Montelukast Sodium [Singulair] 10 mg PO DAILY 06/17/19 [History] amLODIPine BESYLATE 10 mg PO DAILY 06/17/19 [History] Follow up Appointment(s)/Referral(s): Marshall Witt MD [STAFF PHYSICIAN] - 4 Weeks (pls have pt call office [phone] to make f/u appt in about 3-4 wks) Annamaria Dee MD [Primary Care Provider] - 1-2 days Discharge Disposition: HOME SELF-CARE
[2019-06-20] MEDS ORDERED: CYANOCOBALAMIN 500 MCG TAB PO SCH (09:00)
[2019-06-20] MEDS ORDERED: ERGOCALCIFEROL 50,000 UNIT CAP PO SCH (09:00)
[2019-06-21 12:58] LABS: Albumin 3.77 g/dL (3.80-4.90); Gamma Globulin 0.64 g/dL (0.70-1.50)
== END 2019-06-19 13:45 | disposition left against medical advice (07) | DRG 394 ==
LOC: EC 09:50 → 3SCARD 12:09
PROVIDERS: ADMIT Internal Medicine; ATTEND Internal Medicine
PROC: 30233N1 Transfusion of Nonautologous Red Blood Cells into Peripheral Vein, Percutaneous Approach (ICD-10-PCS; principal; 2019-06-17)
PROC: 0DB58ZX Excision of Esophagus, Via Natural or Artificial Opening Endoscopic, Diagnostic (ICD-10-PCS; 2019-06-19)
PROC: 0DJD8ZZ Inspection of Lower Intestinal Tract, Via Natural or Artificial Opening Endoscopic (ICD-10-PCS; 2019-06-19)
PROC: 0DB98ZX Excision of Duodenum, Via Natural or Artificial Opening Endoscopic, Diagnostic (ICD-10-PCS; 2019-06-19 08:00)
DX: K64.1 Second degree hemorrhoids (principal); B37.81 Candidal esophagitis; E87.2 Acidosis; D50.0 Iron deficiency anemia secondary to blood loss (chronic); D53.9 Nutritional anemia, unspecified; D72.829 Elevated white blood cell count, unspecified; E78.5 Hyperlipidemia, unspecified; F17.210 Nicotine dependence, cigarettes, uncomplicated; I10 Essential (primary) hypertension; J45.909 Unspecified asthma, uncomplicated; M10.9 Gout, unspecified; Z79.899 Other long term (current) drug therapy; Z82.3 Family history of stroke; Z82.49 Family history of ischemic heart disease and other diseases of the circulatory system; Z83.3 Family history of diabetes mellitus
CPT/HCPCS: 36415; 43239; 45378; 74022; 76700; 80053; 81003; 82272; 82607; 82668; 82728; 82784; 83010; 83540; 83550; 83605; 83615; 83735; 83883; 84165; 84484; 85025; 85027; 85610; 85652; 85730; 86038; 86334; 86431; 86850; 86900; 86901; 86920; 88305; 88312; 93005; 94640; 96374; 99285

== ENCOUNTER 2019-07-14 10:02 | Emergency (ER) | payer OTHER ==
[2019-07-14 10:11] VITALS: RESP 16
[2019-07-14] MEDS ORDERED: SODIUM CHLORIDE 0.9% 500 ML 500 ML IV STA (10:21)
[2019-07-14 11:03] LABS: Anisocytosis Marked; HCT 22.6 % (39.0-53.0); Hypochromasia Marked; MCH 22.1 pg (25.0-35.0); MCHC 28.1 g/dL (31.0-37.0); Mean Platelet Volume 6.3; Microcytosis Marked; Platelet Count 475 k/uL (150-450); Poikilocytosis Moderate; RBC 2.87 m/uL (4.30-5.90); WBC 14.5 k/uL (3.8-10.6)
[2019-07-14 11:17] LABS: ALT 38 U/L (21-72); AST 28 U/L (17-59); African American GFR (CKD) >90 (>60 ml/min/1.73 sqM); Albumin 4.2 g/dL (3.5-5.0); Alkaline Phosphatase 46 U/L (38-126); Anion Gap 8 mmol/L; Blood Urea Nitrogen 12 mg/dL (9-20); Calcium 9.5 mg/dL (8.4-10.2); Carbon Dioxide 24 mmol/L (22-30); Chloride 109 mmol/L (98-107); Glucose 105 mg/dL (74-99); Non-African American GFR(CKD) >90 (>60 ml/min/1.73 sqM); Potassium 4.1 mmol/L (3.5-5.1); Sodium 141 mmol/L (137-145); Total Bilirubin 0.3 mg/dL (0.2-1.3); Total Protein 6.7 g/dL (6.3-8.2)
[2019-07-14 11:21] LABS: RDW 26.8 % (11.5-15.5)
--- NOTE | 2019-07-14 11:21 | ED ---
Recheck HPI - General Chief Complaint: Recheck/Abnormal Lab/Rx Stated Complaint: abn labs Time Seen by Provider: 07/14/19 10:21 Source: patient Mode of arrival: ambulatory Limitations: no limitations - History of Present Illness Initial Comments: 49-year-old male with history of anemia presents emergency room for blood transfusion. Patient states that he was recently hospitalized for anemia of unknown origin. He states it is not from a GI bleed. Patient states that on repeat appointments following his admission and transfusion; his colon was turni ng upward and he was placed on an iron pill. Patient states he really does not experience rectal bleeding often he states occasionally when straining, small amount of blood of atrophic but otherwise no gross large amounts of christine red blood. Patient states nausea and the iron he has had dark stools that are squishy. Patient denies abdominal pain shortness of breath dizziness lightheadedness palpitations pallor petechia fever or chills. Patient states that he previously experienced fatigue with hemoglobin was low however today while he was at a routine primary care appointment his hemoglobin was found to be 5.9 on finger prick and he was sent to the emergency department for transfusion. He was told that he would only need 1 unit of blood and then he could be discharged as it spoke with Dr. Witt highway landscape architect and have a scheduled appointment on Thursday. I did call patient Nurse practioner to confirm this. Remaining ROS (-), patient has no complaints. VS stable. Appears well. - Related Data Home Medications Medication Instructions Recorded Confirmed Albuterol Inhaler [Ventolin Hfa 2 puff INHALATION RT-Q4H PRN 06/17/19 07/14/19 Inhaler] Atorvastatin Calcium [Lipitor] 10 mg PO DAILY 06/17/19 07/14/19 Ergocalciferol [Vitamin D2] 50,000 unit PO MO 06/17/19 07/14/19 Fluticasone Nasal [place] [Flonase 1 spray EA NOSTRIL DAILY 06/17/19 07/14/19 Nasal [place]] Loratadine [Claritin] 10 mg PO DAILY 06/17/19 07/14/19 Losartan Potassium [Cozaar] 100 mg PO DAILY 06/17/19 07/14/19 Montelukast Sodium [Singulair] 10 mg PO DAILY 06/17/19 07/14/19 amLODIPine BESYLATE 10 mg PO DAILY 06/17/19 07/14/19 Allopurinol [Zyloprim] 100 mg PO DAILY 07/14/19 07/14/19 Colchicine [Colcrys] 0.6 mg PO DAILY 07/14/19 07/14/19 Allergies Allergy/AdvReac Type Severity Reaction Status Date / Time No Known Allergies Allergy Verified 07/14/19 10:23 Review of Systems ROS Statement: Those systems with pertinent positive or pertinent negative responses have been documented in the HPI. ROS Other: All systems not noted in ROS Statement are negative. Past Medical History Past Medical History: Asthma, Hyperlipidemia, Hypertension Additional Past Medical History / Comment(s): currently having gout in R great toe, sinus problems. History of Any Multi-Drug Resistant Organisms: None Reported Past Surgical History: Appendectomy Additional Past Surgical History / Comment(s): Eye injury with surgery as a елена n. Past Anesthesia/Blood Transfusion Reactions: No Reported Reaction Past Psychological History: No Psychological Hx Reported Smoking Status: Current every day smoker Past Alcohol Use History: Occasional Past Drug Use History: Marijuana - Past Family History Father Family Medical History: CVA/TIA Additional Family Medical History / Comment(s): Hardening of the arteries. Father is . Mother Family Medical History: Diabetes Mellitus, Hypertension General Exam - General Exam Comments Initial Comments: General: The patient is awake and alert, in no distress, and does not appear acutely ill. Eye: Pupils are equal, round and reactive to light, extra-ocular movements are intact. No nystagmus. There is normal conjunctiva bilaterally. No signs of icterus. Ears, nose, mouth and throat: There are moist mucous membranes and no oral lesions. Slight pallor noted of mucosa of mouth, eyes. Neck: The neck is supple, there is no tenderness or JVD. Cardiovascular: There is a regular rate and rhythm. No murmur, rub or gallop is appreciated. Respiratory: Lungs are clear to auscultation, respirations are non-labored, breath sounds are equal. No wheezes, stridor, rales, or rhonchi. Gastrointestinal: Soft, non-distended, non-tender abdomen without masses or organomegaly noted. There is no rebound or guarding present. No CVA tenderness. Bowel sounds are unremarkable. Palpable mass that is fluctuant on rectal exam, no gross blood or pain.No dark stool on digit. Light brown. Musculoskeletal: Normal ROM, no tenderness. Strength 5/5. Sensation intact. Radial pulses equal bilaterally 2+. Neurological: A&O x 3. CN II-XII intact grossly, There are no obvious motor or sensory deficits. Coordination appears grossly intact. Speech is normal. Skin: Skin is warm and dry and no rashes or lesions are noted. Psychiatric: Cooperative, appropriate mood & affect, normal judgment. Limitations: no limitations Course Vital Signs 07/14/19 07/14/19 07/14/19 10:07 11:22 13:28 Temperature 98.3 F 98.5 F Pulse Rate 70 85 84 Respiratory 16 16 16 Rate Blood Pressure 137/84 152/78 156/86 O2 Sat by Pulse 100 98 Oximetry 07/14/19 07/14/19 07/14/19 13:32 13:42 14:12 Temperature 98.2 F 98.5 F 98.6 F Pulse Rate 78 79 81 Respiratory 16 16 16 Rate Blood Pressure 149/79 138/73 146/80 O2 Sat by Pulse Oximetry 07/14/19 15:08 Temperature 98.5 F Pulse Rate 88 Respiratory 16 Rate Blood Pressure 146/80 O2 Sat by Pulse Oximetry Medical Decision Making - Medical Decision Making Well-appearing 49-year-old male presenting for transfusion. Patient has no current complaints. Patient heart rate within normal limits. Hemodynamically stable with no complaints of christine gross amounts of bright red blood from rectum. Occult blood was positive. Patient does have palpable mass that is consistent with a hemorrhoid. No christine blood or dark stool on finger after rectal examination. Abdominal exam benign. I did contact patient's primary care provider who did recommend discharge with outpatient f/iu in Dr. Witt office Thursday. She states if he was not discharged today he would not stay in the hospital (and leave AMA) as he has an important meeting tomorrow morning and would return then if needed. The patient is close both primary and he hematology follow-up patient is hemodynamically stable with no tachycardia and no symptoms patient was given 1 unit of red cells and discharged from the emergency department after discussing the case with attending provider Dr. Finley-- who was agreeable with discharge of this patient. - Lab Data Result diagrams: 07/14/19 10:47 07/14/19 10:47 Lab Results 09/26/19 09/26/19 09/26/19 Range/Units 10:47 10:47 10:47 WBC 14.5 H (3.8-10.6) k/uL RBC 2.87 L (4.30-5.90) m/uL Hgb 6.3 L* (13.0-17.5) gm/dL Hct 22.6 L (39.0-53.0) % MCV 78.6 L D (80.0-100.0) fL MCH 22.1 L (25.0-35.0) pg MCHC 28.1 L (31.0-37.0) g/dL RDW 26.8 H (11.5-15.5) % Plt Count 475 H (150-450) k/uL Neutrophils % (Manual) 72 % Lymphocytes % (Manual) 16 % Monocytes % (Manual) 10 % Eosinophils % (Manual) 2 % Basophils % (Manual) 1 % Metamyelocytes % 1 % Neutrophils # (Manual) 10.44 H (1.3-7.7) k/uL Lymphocytes # (Manual) 2.32 (1.0-4.8) k/uL Monocytes # (Manual) 1.45 H (0-1.0) k/uL Eosinophils # (Manual) 0.29 (0-0.7) k/uL Basophils # (Manual) 0.15 (0-0.2) k/uL Metamyelocytes # (Man) 0.15 H (0) k/uL Nucleated RBCs 0 (0-0) /100 WBC Differential Comment Manual Slide Review Performed Dimorphic RBCs Present Polychromasia Present Hypochromasia Marked Poikilocytosis Moderate Anisocytosis Marked Microcytosis Marked PT (9.0-12.0) sec INR (<1.2) APTT (22.0-30.0) sec Sodium 141 (137-145) mmol/L Potassium 4.1 (3.5-5.1) mmol/L Chloride 109 H (98-107) mmol/L Carbon Dioxide 24 (22-30) mmol/L Anion Gap 8 mmol/L BUN 12 (9-20) mg/dL Creatinine 0.87 (0.66-1.25) mg/dL Est GFR (CKD-EPI)AfAm >90 (>60 ml/min/1.73 sqM) Est GFR (CKD-EPI)NonAf >90 (>60 ml/min/1.73 sqM) Glucose 105 H (74-99) mg/dL Calcium 9.5 (8.4-10.2) mg/dL Total Bilirubin 0.3 (0.2-1.3) mg/dL AST 28 (17-59) U/L ALT 38 (21-72) U/L Alkaline Phosphatase 46 (38-126) U/L Troponin I (0.000-0.034) ng/mL Total Protein 6.7 (6.3-8.2) g/dL Albumin 4.2 (3.5-5.0) g/dL Stool Occult Blood (Negative) Blood Type A Positive Blood Type Recheck A Pos Bld Type Recheck Status No Antibody Screen NEGATIVE Crossmatch See Detail Spec Expiration Date 07/17/2019 - 234607/14/19 07/14/19 07/14/19 Range/Units 10:47 10:47 11:00 WBC (3.8-10.6) k/uL RBC (4.30-5.90) m/uL Hgb (13.0-17.5) gm/dL Hct (39.0-53.0) % MCV (80.0-100.0) fL MCH (25.0-35.0) pg MCHC (31.0-37.0) g/dL RDW (11.5-15.5) % Plt Count (150-450) k/uL Neutrophils % (Manual) % Lymphocytes % (Manual) % Monocytes % (Manual) % Eosinophils % (Manual) % Basophils % (Manual) % Metamyelocytes % % Neutrophils # (Manual) (1.3-7.7) k/uL Lymphocytes # (Manual) (1.0-4.8) k/uL Monocytes # (Manual) (0-1.0) k/uL Eosinophils # (Manual) (0-0.7) k/uL Basophils # (Manual) (0-0.2) k/uL Metamyelocytes # (Man) (0) k/uL Nucleated RBCs (0-0) /100 WBC Differential Comment Manual Slide Review Dimorphic RBCs Polychromasia Hypochromasia Poikilocytosis Anisocytosis Microcytosis PT 10.1 (9.0-12.0) sec INR 0.9 (<1.2) APTT 20.6 L (22.0-30.0) sec Sodium (137-145) mmol/L Potassium (3.5-5.1) mmol/L Chloride (98-107) mmol/L Carbon Dioxide (22-30) mmol/L Anion Gap mmol/L BUN (9-20) mg/dL Creatinine (0.66-1.25) mg/dL Est GFR (CKD-EPI)AfAm (>60 ml/min/1.73 sqM) Est GFR (CKD-EPI)NonAf (>60 ml/min/1.73 sqM) Glucose (74-99) mg/dL Calcium (8.4-10.2) mg/dL Total Bilirubin (0.2-1.3) mg/dL AST (17-59) U/L ALT (21-72) U/L Alkaline Phosphatase (38-126) U/L Troponin I <0.012 (0.000-0.034) ng/mL Total Protein (6.3-8.2) g/dL Albumin (3.5-5.0) g/dL Stool Occult Blood Positive (Negative) Blood Type Blood Type Recheck Bld Type Recheck Status Antibody Screen Crossmatch Spec Expiration Date Disposition Clinical Impression: Anemia, Leukocytosis, Low hemoglobin Disposition: HOME SELF-CARE Condition: Good Instructions (If sedation given, give patient instructions): Anemia (ED), Blood Transfusion (DC) Additional Instructions: Please use medication as discussed. Please follow-up with family doctor in the next 24 hours, see Dr. Witt on Thursday. If have rectal bleeding, fatigue, racing heart, shortness of breath, abdominal pain or any other symptoms please return to the ER immediately. Please return to emergency room if the symptoms increase or worsen or for any other concerns. Is patient prescribed a controlled substance at d/c from ED?: No Referrals: Annamaria Dee MD [Primary Care Provider] - 1-2 days Marshall Witt MD [STAFF PHYSICIAN] - 07/18/19 Time of Disposition: 14:31
[2019-07-14 11:22] LABS: HGB 6.3 gm/dL (13.0-17.5); MCV 78.6 fL (80.0-100.0)
[2019-07-14 11:34] LABS: Basophils # (M) 0.15 k/uL (0-0.2); Eosinophils # (M) 0.29 k/uL (0-0.7); Lymphocytes # (M) 2.32 k/uL (1.0-4.8); Metamyelocytes # (M) 0.15 k/uL (0); Metamyelocytes % 1 %; Monocytes # (M) 1.45 k/uL (0-1.0); Neutrophils # (M) 10.44 k/uL (1.3-7.7); Neutrophils % (M) 72 %; Nucleated Red Blood Cells 0 /100 WBC (0-0); Polychromasia Present; Total Cells Counted 200
[2019-07-14 11:35] LABS: Mixed Population RBC Present
[2019-07-14 11:56] LABS: INR 0.9 (<1.2); Prothrombin Time 10.1 sec (9.0-12.0)
[2019-07-14 12:01] LABS: Partial Thromboplastin Time 20.6 sec (22.0-30.0)
[2019-07-14 15:08] VITALS: BP 146/80
[2019-07-14 15:09] VITALS: PULSE 88; TEMP 98.5
== END 2019-07-14 15:30 | disposition home or self-care (01) ==
LOC: EC 10:02
DX: D64.9 Anemia, unspecified (principal); D72.829 Elevated white blood cell count, unspecified; R11.0 Nausea; J45.909 Unspecified asthma, uncomplicated; E78.5 Hyperlipidemia, unspecified; I10 Essential (primary) hypertension; M10.9 Gout, unspecified; F17.200 Nicotine dependence, unspecified, uncomplicated; Z79.899 Other long term (current) drug therapy
CPT/HCPCS: 99283 ×2; 36430; 36415; 86900; 86901; 80053; 84484; 85025; 85610; 85730; 86850; 86920; 82272; P9016

== ENCOUNTER → 2019-09-26 | Outpatient (CLI) | payer OTHER ==
--- NOTE | 2019-09-26 12:03 | FL ---
EXAMINATION TYPE: FL small bowel follow through DATE OF EXAM: 09/26/2019 COMPARISON: None HISTORY: Iron deficiency anemia, hemorrhoids, constipation TECHNIQUE: Sequential overhead radiographs were obtained. Real-time fluoroscopy over the abdomen was performed with fluoroscopic spot imaging. Fluoroscopy time: 1 minute 2 seconds. Images: 16 FINDINGS: Denture Finisher view: Single AP abdomen was obtained. Psoas margins are normal. Moderate fecal retent ion is present. Sequential overhead radiographs and fluoroscopic spot imaging is performed. There may be some mild fo ld hypertrophy through the second and third portions of the duodenum. Transit time to the colon is 1 hour. Fluoroscopic spot imaging over the terminal ileum is unremarkabl e. Cecum is underdistended an underlying abnormality within the cecum cannot be excluded. Consider co lonoscopy IMPRESSION: 1. There is some fold hypertrophy without obvious ulceration within the duodenum. Correlate for mild duodenitis. 2. Small bowel follow-through is otherwise unremarkable. 3. Cecum is nondistended during this examination. Colonoscopy could further evaluate for cecal abnorm ality
== END | disposition home or self-care (01) ==
LOC: RADFLMAIN 08:49
PROVIDERS: ATTEND Internal Medicine Gastroenterology
DX: K31.89 Other diseases of stomach and duodenum (principal); D50.9 Iron deficiency anemia, unspecified
CPT/HCPCS: 74250

== ENCOUNTER → 2019-11-22 | Outpatient (CLI) | payer OTHER ==
[2019-11-22 11:11] LABS: Anisocytosis Slight; HCT 31.8 % (39.0-53.0); HGB 7.8 gm/dL (13.0-17.5); Hypochromasia Marked; MCH 21.2 pg (25.0-35.0); MCHC 24.5 g/dL (31.0-37.0); MCV 86.6 fL (80.0-100.0); Mean Platelet Volume 7.7; Platelet Count 646 k/uL (150-450); RBC 3.67 m/uL (4.30-5.90); RDW 17.8 % (11.5-15.5); WBC 8.6 k/uL (3.8-10.6)
== END | disposition home or self-care (01) ==
LOC: LABWHC1 10:02
PROVIDERS: ATTEND Surgery Plastic and Reconstructive Surgery
DX: D64.9 Anemia, unspecified (principal)
CPT/HCPCS: 36415; 85027

== ENCOUNTER 2019-11-25 06:51 | Day surgery (SDC) | payer OTHER ==
[2019-11-17 14:08] VITALS: BMI 26.6
--- NOTE | 2019-11-24 14:45 | P.GSHP ---
History of Present Illness H&P Date: 11/25/19 CHIEF COMPLAINT: Symptomatic hemorrhoids and rectal bleeding HISTORY OF PRESENT ILLNESS: The patient is a 49-year-old male who presents with symptomatic hemorrhoids and rectal bleeding. He now presents for definitive surgical intervention. PAST MEDICAL HISTORY: Please see list. PAST SURGICAL HISTORY: Please see list. MEDICATIONS: Please see list. ALLERGIES: Please see list. SOCIAL HISTORY: No illicit drug use FAMILY HISTORY: No reports of Crohn disease or ulcerative colitis. REVIEW OF ORGAN SYSTEMS: CONSTITUTIONAL: No reports of fevers or chills. PHYSICAL EXAM: VITAL SIGNS: Stable GENERAL: Well-developed pleasant in no acute distress. HEENT: No scleral icterus. Extraocular movements grossly intact. Moist buccal mucosa. NECK: Supple without lymphadenopathy. CHEST: Unlabored respirations. Equal bilateral excursions. CARDIOVASCULAR: Regular rate and rhythm. Distal 2+ pulses. ABDOMEN: Soft, nontender, nondistended. MUSCULOSKELETAL: No clubbing, cyanosis, or edema. RECTUM: Grade 4 external/internal hemorrhoids ASSESSMENT: 1. Symptomatic hemorrhoids, grade 4. 2. Anemia PLAN: 1. Recommend proceeding hemorrhoidectomy Past Medical History Past Medical History: Asthma, Hyperlipidemia, Hypertension Additional Past Medical History / Comment(s): HX GOUT, STATES BLEEDING HEMORROIDS- RECEIVED BLOOD TRANSFUSION JUN 2019. History of Any Multi-Drug Resistant Organisms: None Reported Past Surgical History: Appendectomy, Tonsillectomy Additional Past Surgical History / Comment(s): TONSILLS (CHILD), EYE INJURY WITH SURGERY (TEEN) Past Anesthesia/Blood Transfusion Reactions: No Reported Reaction Additional Past Anesthesia/Blood Transfusion Reaction / Comment(s): HX OF BLOOD TRANSFUSION- NO REACTION Past Psychological History: No Psychological Hx Reported Additional Psychological History / Comment(s): . Smoking Status: Current every day smoker Past Alcohol Use History: Occasional Additional Past Alcohol Use History / Comment(s): Pt started smoking in 2001 , Currently smoking 1 pack q 3-4 days. Past Drug Use History: Marijuana Additional Drug Use History / Comment(s): currently smokes & eats marijuana. - Past Family History Father Family Medical History: CVA/TIA Additional Family Medical History / Comment(s): Hardening of the arteries. Father is . Mother Family Medical History: Diabetes Mellitus, Hypertension Medications and Allergies Home Medications Medication Instructions Recorded Confirmed Type Albuterol Inhaler [Ventolin Hfa 2 puff INHALATION RT-Q4H PRN 06/17/19 11/17/19 History Inhaler] Atorvastatin Calcium [Lipitor] 10 mg PO DAILY 06/17/19 11/17/19 History Ergocalciferol [Vitamin D2] 50,000 unit PO TATE 06/17/19 11/17/19 History Fluticasone Nasal [place] [Flonase 1 spray EA NOSTRIL DAILY 06/17/19 11/17/19 History Nasal [place]] Loratadine [Claritin] 10 mg PO DAILY 06/17/19 11/17/19 History Losartan Potassium [Cozaar] 100 mg PO DAILY 06/17/19 11/17/19 History Montelukast Sodium [Singulair] 10 mg PO DAILY 06/17/19 11/17/19 History amLODIPine BESYLATE 10 mg PO DAILY 06/17/19 11/17/19 History Albuterol Nebulizer 1 dose INHALATION DIRECTED PRN 11/17/19 History Docusate [Colace] 100 mg PO DAILY PRN 11/17/19 11/17/19 History Ferrous Sulfate [Iron] 325 mg PO TID 11/17/19 11/17/19 History Ibuprofen 200 mg PO DIRECTED PRN 11/17/19 11/17/19 History Allergies Allergy/AdvReac Type Severity Reaction Status Date / Time No Known Allergies Allergy Verified 11/17/19 13:32
[~2019-11-25 06:51] MED LIST: NA PHOS,M-B/NA PHOS,DI-BA 133 ML ENEMA RECTAL ONE; TAMSULOSIN 0.4 MG CAP.ER.24H PO ONE
[2019-11-25] MEDS ORDERED: LIDOCAINE 1% 20 ML VIAL (10MG/ML) FOR IV START INTRADERMA PRN (07:00)
[2019-11-25] MEDS ORDERED: SCOPOLAMINE 1.5MG/72HR PATCH TRANSDERM ONE (07:00)
[2019-11-25] MEDS ORDERED: HYDROmorphone 0.5 MG/0.5 ML SYRINGE IVP PRN ×2 (07:00→09:59)
[2019-11-25] MEDS ORDERED: DEXAMETHASONE SOD PHOSPHATE 10 MG/ML 1 ML VIAL IV ONE (07:00)
[2019-11-25] MEDS ORDERED: ONDANSETRON 4 MG/2 ML VIAL IVP ONE (07:00)
[2019-11-25] MEDS: LACTATED RINGERS 1,000 ML IV SCH ×2 (07:46→21:19)
[2019-11-25] MEDS ORDERED: metroNIDAZOLE-NS PMX 500 MG in SALINE 100 100ML.BAG IVPB ONE (08:00)
[2019-11-25 08:11] LABS: Anisocytosis Slight; Basophils # (A) 0.1 k/uL (0-0.2); Basophils % (A) 1 %; Eosinophils # (A) 0.2 k/uL (0-0.7); Eosinophils % (A) 2 %; HCT 31.4 % (39.0-53.0); Hypochromasia Marked; Lymphocytes % (A) 10 %; MCH 21.6 pg (25.0-35.0); MCHC 25.4 g/dL (31.0-37.0); MCV 85.4 fL (80.0-100.0); Mean Platelet Volume 7.2; Monocytes # (A) 0.7 k/uL (0-1.0); Monocytes % (A) 7 %; Neutrophils # (A) 7.9 k/uL (1.3-7.7); Neutrophils % (A) 78 %; Platelet Count 592 k/uL (150-450); RBC 3.68 m/uL (4.30-5.90); RDW 18.9 % (11.5-15.5); WBC 10.1 k/uL (3.8-10.6)
[2019-11-25] MEDS ORDERED: BUPIVACAINE LIPOSOME/PF 1.3% 20 ML, SODIUM CHLORIDE 0.9% 10 ML MISCELLANE ONE ×2 (08:25)
[2019-11-25] MEDS ORDERED: HEPARIN SODIUM,PORCINE 5,000 UNIT/ML 1 ML VIAL SQ ONE (08:40)
[2019-11-25] MEDS ORDERED: SUCCINYLCHOLINE CHLORIDE 100 MG/5 ML SYR IV ONE (08:49)
[2019-11-25] MEDS ORDERED: NEOSTIGMINE 1 MG/ML 10 ML VIAL ONE (08:49)
[2019-11-25] MEDS ORDERED: PROPOFOL 10 MG/ML 20 ML VIAL IV ONE (08:49)
[2019-11-25] MEDS ORDERED: MIDAZOLAM 2 MG/2 ML VIAL ONE (08:49)
[2019-11-25] MEDS ORDERED: ALBUTEROL INHALER 60 PUFF/8 GM INHALER INHALATION ONE (08:49)
[2019-11-25] MEDS ORDERED: ROCURONIUM BROMIDE 10 MG/ML 5 ML VIAL IV ONE (08:49)
[2019-11-25] MEDS ORDERED: fentaNYL (PF) 50 MCG/ML 2 ML AMP ONE (08:49)
[2019-11-25] MEDS ORDERED: LIDOCAINE 1% INJ 10MG/ML (20 ML MDV) ONE (08:49)
[2019-11-25] MEDS ORDERED: GLYCOPYRROLATE 0.2 MG/ML 2 ML VIAL ONE (08:49)
[2019-11-25] MEDS ORDERED: LACTATED RINGERS 1,000 ML IV ONE (09:36)
[2019-11-25] MEDS ORDERED: ACETAMINOPHEN TAB 325 MG TAB PO PRN (09:59)
[2019-11-25] MEDS ORDERED: ONDANSETRON 4 MG/2 ML VIAL IVP PRN (09:59)
[2019-11-25] MEDS ORDERED: NALOXONE 0.4 MG/ML 1 ML VIAL IV PRN (09:59)
[2019-11-25] MEDS ORDERED: SODIUM CHLORIDE 0.9% 1,000 ML IV ONE (10:01)
[2019-11-25] MEDS ORDERED: HYDROmorphone 1 MG/ML 1 ML SYRINGE IVP PRN (10:02)
[2019-11-25] MEDS ORDERED: ALBUTEROL NEBULIZER INHALATION PRN (10:23)
[2019-11-25] MEDS ORDERED: ALBUTEROL NEBULIZED 2.5 MG/3 ML INHALATION PRN (10:23)
--- NOTE | 2019-11-25 10:23 | P.OP ---
Date of Procedure: 11/25/19 Description of Procedure: SURGEON: REMINGTON NAM MD [facility] FORMER: NONE. PREOPERATIVE DIAGNOSES: 1. History of acute blood loss anemia due to hemorrhoids 2. History of complicated internal hemorrhoids, grade 4. 3. Asthma. 4. Hypertensive heart disease 5. Chronic obstructive pulmonary disease 6. Iron deficiency anemia due to chronic blood loss 7. Hyperlipidemia 8. Vitamin D deficiency POSTOPERATIVE DIAGNOSES: 1. Active rectal arterial hemorrhage from complicated internal grade 4 hemorrh oids 2. Acute blood loss anemia due to bleeding hemorrhoids 3. Asthma. 4. Hypertensive heart disease 5. Chronic obstructive pulmonary disease 6. Iron deficiency anemia due to chronic blood loss 7. Hyperlipidemia 8. Vitamin D deficiency OPERATION: 1. Control of rectal arterial bleeding internal hemorrhoids 2. Excision of internal hemorrhoids x 3 using LigaSure. ANESTHESIA: GETA with Exparel mixture. ESTIMATED BLOOD LOSS: 30 mL. PATHOLOGY: 1. Internal hemorrhoidal complex x 3. FINDINGS: 1. Active rectal arterial hemorrhage from Grade 4 internal hemorrhoidal cushions 3 excised. 2. No anal stricture upon excision of hemorrhoidal complexes. INDICATIONS: The patient is a 49-year-old male who presents with rectal bleeding and chronic anemia due to complicated internal/external hemorrhoids. He had completed a colonoscopy in the past 12 months. Surgical intervention was described for hemorrhoidectomy. Benefits and risks of the procedure, including bleeding, infection, incontinence, recurrent pain and recurrence of the hemorrhoids were discussed in detail. Informed consent was obtained. DESCRIPTION: Patient was brought to the operating room. After general induction, he was then repositioned the prone jackknife position. Next, the perineum and buttocks was spread apart using Mastisol. The perineum was then prepped and draped in standard sterile fashion using Betadine. Preoperative medication was confirmed. Prior to incision, a timeout protocol was confirmed with surgical team. Initially 2 fingers was easily inserted for dilation of the anus. All hemo rrhoids cushions were explored: left lateral, right anterior, and right posterior. Active arterial rectal bleeding was found along the left lateral and right anterior hemorrhoidal cushions. Moderate bleeding was found and cauterized using bovie cautery. A perineal block using Exparel was placed. Grade 4 hemorrhoids along all 3 quadrants were identified. Next, using a Rodolfo-Arleth anoscope, each hemorrhoidal cushion was addressed using a hand-held LigaSure after elevating each hemorrhoidal complex using forceps. At the end of the case, digital evaluation were performed without any features of the anal stricture or stenosis. Hemostasis was checked. No active bleeding was found upon completion of the case. At the end of the procedure, needle, sponge, and counts had been verified correct by the surgical dental assistant. The patient had chronic cough at the end of the procedure. Intraoperative findings including postoperative care instructions were discussed. Observation advised for severity of his asthma, cough, and anemia. Plan - Discharge Summary Discharge Rx Participant: Yes New Discharge Prescriptions: No Action Loratadine [Claritin] 10 mg PO DAILY Ergocalciferol [Vitamin D2] 50,000 unit PO TATE Montelukast Sodium [Singulair] 10 mg PO DAILY Losartan Potassium [Cozaar] 100 mg PO DAILY Fluticasone Nasal [place] [Flonase Nasal Monitor] 1 spray EA NOSTRIL DAILY amLODIPine BESYLATE 10 mg PO DAILY Atorvastatin Calcium [Lipitor] 10 mg PO DAILY Albuterol Inhaler [Ventolin Hfa Inhaler] 2 puff INHALATION RT-Q4H PRN PRN Reason: Shortness Of Breath Docusate [Colace] 100 mg PO DAILY PRN PRN Reason: Constipation Ferrous Sulfate [Iron] 325 mg PO TID Albuterol Nebulizer 1 dose INHALATION DIRECTED PRN PRN Reason: Shortness Of Breath RX: Ibuprofen 200 mg PO DIRECTED PRN PRN Reason: Pain Discharge Medication List Albuterol Inhaler [Ventolin Hfa Inhaler] 2 puff INHALATION RT-Q4H PRN 06/17/19 [History] Atorvastatin Calcium [Lipitor] 10 mg PO DAILY 06/17/19 [History] Ergocalciferol [Vitamin D2] 50,000 unit PO TATE 06/17/19 [History] Fluticasone Nasal [place] [Flonase Nasal Monitor] 1 spray EA NOSTRIL DAILY 06/17/19 [History] Loratadine [Claritin] 10 mg PO DAILY 06/17/19 [History] Losartan Potassium [Cozaar] 100 mg PO DAILY 06/17/19 [History] Montelukast Sodium [Singulair] 10 mg PO DAILY 06/17/19 [History] amLODIPine BESYLATE 10 mg PO DAILY 06/17/19 [History] Albuterol Nebulizer 1 dose INHALATION DIRECTED PRN 11/17/19 [History] Docusate [Colace] 100 mg PO DAILY PRN 11/17/19 [History] Ferrous Sulfate [Iron] 325 mg PO TID 11/17/19 [History] RX: Ibuprofen 200 mg PO DIRECTED PRN 11/17/19 [History]
[2019-11-25] MEDS: SODIUM FERRIC GLUCONAT-SUCROSE 125 MG in SODIUM CHLORIDE 0.9% 100 ML IVPB SCH (11:33)
[2019-11-25] MEDS: 0.9% NACL WITH KCL 20 MEQ/L 1,000 ML IV SCH ×2 (12:55→20:47)
[2019-11-25] MEDS: ALBUTEROL NEBULIZED 2.5 MG/3 ML INHALATION SCH ×3 (13:02→20:29)
[2019-11-25] MEDS: DOCUSATE 100 MG CAP PO SCH (20:44)
[2019-11-26] MEDS: 0.9% NACL WITH KCL 20 MEQ/L 1,000 ML IV SCH (05:30)
[2019-11-26] MEDS ORDERED: 0.9% NACL WITH KCL 20 MEQ/L 1,000 ML IV SCH (08:00)
[2019-11-26 08:40] VITALS: BP 168/91; RESP 17; TEMP 97.9
[2019-11-26 08:55] LABS: Anisocytosis Slight; Basophils # (A) 0.2 k/uL (0-0.2); Basophils % (A) 2 %; Eosinophils # (A) 0.1 k/uL (0-0.7); Eosinophils % (A) 0 %; HCT 29.2 % (39.0-53.0); HGB 7.3 gm/dL (13.0-17.5); Hypochromasia Marked; Lymphocytes # (A) 1.4 k/uL (1.0-4.8); Lymphocytes % (A) 11 %; MCH 22.2 pg (25.0-35.0); MCV 88.8 fL (80.0-100.0); Mean Platelet Volume 7.2; Monocytes # (A) 1.1 k/uL (0-1.0); Monocytes % (A) 9 %; Neutrophils % (A) 76 %; Platelet Count 479 k/uL (150-450); RBC 3.28 m/uL (4.30-5.90); RDW 18.3 % (11.5-15.5); WBC 13.1 k/uL (3.8-10.6)
[2019-11-26] MEDS ORDERED: LORATADINE 10 MG TAB PO SCH (09:00)
[2019-11-26] MEDS ORDERED: MONTELUKAST 10 MG TAB PO SCH (09:00)
[2019-11-26] MEDS ORDERED: FLUTICASONE 50MCG/SPRAY NASAL 16GM EA NOSTRIL SCH (09:00)
[2019-11-26] MEDS ORDERED: amLODIPine 10 MG TAB PO SCH (09:00)
[2019-11-26] MEDS ORDERED: LOSARTAN 50 MG TAB PO SCH (09:00)
[2019-11-26] MEDS: ALBUTEROL NEBULIZED 2.5 MG/3 ML INHALATION SCH ×2 (09:04→11:44)
[2019-11-26] MEDS: SODIUM FERRIC GLUCONAT-SUCROSE 125 MG in SODIUM CHLORIDE 0.9% 100 ML IVPB SCH (09:22)
[2019-11-26] MEDS: DOCUSATE 100 MG CAP PO SCH (09:43)
--- NOTE | 2019-11-26 11:27 | P.PN ---
Progress Note - Text Progress Note Date: 11/26/19 Patient is doing well. He denies any significant rectal bleeding. He denies any significant pain. On exam is lesser stable. Abdomen soft. He will stable 7.6.. Patient will be discharged home today. He'll follow-up Dr. Nicole next week.
[2019-11-26 11:57] VITALS: PULSE 76
[2019-11-26 12:28] LABS: Ferritin 106.8 ng/mL (22.0-322.0)
[2019-11-26 13:59] LABS: % Iron Saturation 5.16 (15.00-50.00)
== END 2019-11-26 13:08 | disposition home or self-care (01) ==
LOC: OR 06:51 → 4SSUR 10:54 → OR 11-26 13:08
PROVIDERS: ATTEND Surgery Plastic and Reconstructive Surgery
DX: K64.3 Fourth degree hemorrhoids (principal); D62 Acute posthemorrhagic anemia; D50.9 Iron deficiency anemia, unspecified; I11.9 Hypertensive heart disease without heart failure; E78.5 Hyperlipidemia, unspecified; J44.9 Chronic obstructive pulmonary disease, unspecified; M10.9 Gout, unspecified; F17.210 Nicotine dependence, cigarettes, uncomplicated; E55.9 Vitamin D deficiency, unspecified; Z79.899 Other long term (current) drug therapy; Z90.49 Acquired absence of other specified parts of digestive tract; Z90.89 Acquired absence of other organs; Z98.890 Other specified postprocedural states; Z83.3 Family history of diabetes mellitus; Z82.3 Family history of stroke; Z82.49 Family history of ischemic heart disease and other diseases of the circulatory system
CPT/HCPCS: 94640 ×4; 94760; 86900; 86901; 88304; 82728; 83540; 83550; 85025 ×2; 86850; 46260; J2250; J1644; J1100; J2710; J0690; J2405; J2001; J3010; J2916 ×2; J0330; C9290; J2704

== ENCOUNTER 2025-03-28 09:48 | Emergency (ER) | payer OTHER ==
[2025-03-28 09:52] VITALS: TEMP 98.1
--- NOTE | 2025-03-28 10:07 | ED ---
General Adult HPI - General Chief complaint: Upper Respiratory Infection Stated complaint: SOB Time Seen by Provider: 03/28/25 09:55 Source: patient, RN notes reviewed, old records reviewed Mode of arrival: ambulatory Limitations: no limitations - History of Present Illness Initial comments: This is a 54-year-old male who presents to the emergency department complaining of having some pressure in his ears and having a little bit of a cough as he went to the urgent care where they told him that he need to be seen in the emergency department. Patient denies any chest pain difficulty breathing. Patient states when he is coughing he is mildly short of breath. Patient states he ran out of his high blood pressure medication 4 days ago. Patient denies a headache patient denies numbness weakness. Patient denies blurred vision. - Related Data Home Medications Medication Instructions Recorded Confirmed Albuterol Inhaler [Ventolin Hfa 2 puff INHALATION RT-Q4H PRN 06/17/19 03/28/25 Inhaler] Losartan Potassium [Cozaar] 100 mg PO DAILY 06/17/19 03/28/25 amLODIPine BESYLATE 10 mg PO DAILY 06/17/19 03/28/25 Ipratropium-Albuterol Nebulize 3 ml INHALATION RT-Q6H PRN 03/28/25 03/28/25 [Duoneb 0.5 mg-3 mg/3 ml Soln] NIFEdipine XL [Procardia Xl] 90 mg PO DAILY 03/28/25 03/28/25 hydroCHLOROthiazide [Hydrodiuril] 25 mg PO DAILY 03/28/25 03/28/25 Previous Rx's Medication Instructions Recorded Losartan Potassium [Cozaar] 100 mg PO DAILY #30 tab 03/28/25 NIFEdipine [NIFEdipine ER 90 mg PO DAILY #30 tab 03/28/25 (Osmotic)] hydroCHLOROthiazide 25 mg PO DAILY #30 tab 03/28/25 Allergies Allergy/AdvReac Type Severity Reaction Status Date / Time No Known Allergies Allergy Verified 03/28/25 10:34 Review of Systems ROS Statement: Those systems with pertinent positive or pertinent negative responses have been documented in the HPI. ROS Other: All systems not noted in ROS Statement are negative. Past Medical History Past Medical History: Asthma, Hypertension Additional Past Medical History / Comment(s): currently having gout in R great toe, sinus problems. History of Any Multi-Drug Resistant Organisms: None Reported Past Surgical History: Appendectomy Additional Past Surgical History / Comment(s): Eye injury with surgery as a teen. Past Anesthesia/Blood Transfusion Reactions: No Reported Reaction Past Psychological History: No Psychological Hx Reported Smoking Status: Former smoker Past Alcohol Use History: Occasional Past Drug Use History: Marijuana - Past Family History Father Family Medical History: CVA/TIA Additional Family Medical History / Comment(s): Hardening of the arteries. Father is . Mother Family Medical History: Diabetes Mellitus, Hypertension General Exam - General Exam Comments Initial Comments: GENERAL: Patient is well-developed and well-nourished. Patient is nontoxic and well- hydrated and is in mild distress. ENT: Neck is soft and supple. No significant lymphadenopathy is noted. Oropharynx is clear. Moist mucous membranes. Neck has full range of motion without eliciting any pain. Patient's ears show no signs of infection EYES: The sclera were anicteric and conjunctiva were pink and moist. Extraocular movements were intact and pupils were equal round and reactive to light. Eyelids were unremarkable. PULMONARY: Unlabored respirations. Good breath sounds bilaterally. No audible rales rhonchi or wheezing was noted. CARDIOVASCULAR: There is a regular rate and rhythm without any murmurs gallops or rubs. ABDOMEN: Soft and nontender with normal bowel sounds. SKIN: Skin is clear with no lesions or rashes and otherwise unremarkable. NEUROLOGIC: Patient is alert and oriented x3. Cranial nerves II through XII are grossly intact. Motor and sensory are also intact. Normal speech, volume and content. Symmetrical smile. MUSCULOSKELETAL: Normal extremities with adequate strength and full range of motion. LYMPHATICS: No significant lymphadenopathy is noted PSYCHIATRIC: Normal psychiatric evaluation. Limitations: no limitations Course Vital Signs 03/28/25 03/28/25 03/28/25 09:49 10:16 11:18 Temperature 98.1 F Pulse Rate 103 H 94 120 H Respiratory 16 18 20 Rate Blood Pressure 199/125 173/118 194/97 O2 Sat by Pulse 100 98 100 Oximetry 03/28/25 03/28/25 11:51 12:11 Temperature Pulse Rate 112 H 95 Respiratory 18 22 Rate Blood Pressure 173/98 150/96 O2 Sat by Pulse 98 99 Oximetry Medical Decision Making - Medical Decision Making EKG is interpreted by myself and EKG shows a sinus rhythm at 83 bpm. Of the 160 QRS is 97 QT interval 382 QTc is 422. Patient's EKG shows no ST segment elevation or depression. Was pt. sent in by a medical professional or institution (EDEL Larson, DIRECTOR OF MARKETING, urgent care, hospital, or shelter...) When possible be specific @ -No Did you speak to anyone other than the patient for history (EMS, parent, family, police, friend...)? What history was obtained from this source @ -No Did you review nursing and triage notes (agree or disagree)? Why? @ -I reviewed and agree with nursing and triage notes Were old charts reviewed (outside hosp., previous admission, EMS record, old EKG, old radiological studies, urgent care reports/EKG's, shelter records)? Report findings @ -No old charts were reviewed Differential Diagnosis? @ -Hypertension, upper respiratory infection, pneumonia, this is not an all-inclusive list EKG interpreted by me (3pts min.). @ -As above X-rays interpreted by me (1pt min.). @ -Chest x-ray shows no acute abnormality CT interpreted by me (1pt min.). @ -None done U/S interpreted by me (1pt. min.). @ -None done What testing was considered but not performed or refused? (CT, X-rays, U/S, labs)? Why? @ -None What meds were considered but not given or refused? Why? @ -None Did you discuss the management of the patient with other professionals (professionals i.e. EDEL Larson, DIRECTOR OF MARKETING, lab, RT, psych nurse, oncology social work, emr implementation specialist, teacher, transportation officer, piano case and bench assembler)? Give summary @ -No Was smoking cessation discussed for >3mins.? @ -No Was critical care preformed (if so, how long)? @ -No Were there social determinants of health that impacted care today? How? (Homelessness, low income, unemployed, alcoholism, drug addiction, transportation, low edu. Level, literacy, decrease access to med. care, halfway, rehab)? @ -No Was there de-escalation of care discussed even if they declined (Discuss DNR or withdrawal of care, Hospice)? DNR status @ -No What co-morbidities impacted this encounter? (DM, HTN, Smoking, COPD, CAD, Cancer, CVA, ARF, Chemo, Hep., AIDS, mental health diagnosis, sleep apnea, morbid obesity)? @ -None Was patient admitted / discharged? Hospital course, mention meds given and route, prescriptions, significant lab abnormalities, going to OR and other pertinent info. @ -Patient was given hydralazine and labetalol in the emergency department about blood pressure down nicely. Patient had ran out of his blood pressure meds for the last 4 days and he will be getting blood pressure meds on discharge. Patient also had some wheezing so was given 1 breathing treatment and felt much better. Undiagnosed new problem with uncertain prognosis? @ -No Drug Therapy requiring intensive monitoring for toxicity (Heparin, Nitro, Insulin, Cardizem)? @ -No Were any procedures done? @ -No Diagnosis/symptom? @ -Hypertensive urgency Acute, or Chronic, or Acute on Chronic? @ -Acute Uncomplicated (without systemic symptoms) or Complicated (systemic symptoms)? @ -Complicated Side effects of treatment? @ -No Exacerbation, Progression, or Severe Exacerbation? @ -No Poses a threat to life or bodily function? How? (Chest pain, USA, MD, pneumonia, PE, COPD, DKA, ARF, appy, cholecystitis, CVA, Diverticulitis, Homicidal, Suicidal, threat to staff... and all critical care pts) @ -No Diagnosis/symptom? @ -Upper respiratory infection Acute, or Chronic, or Acute on Chronic? @ -Acute Uncomplicated (without systemic symptoms) or Complicated (systemic symptoms)? @ -Uncomplicated Side effects of treatment? @ -None Exacerbation, Progression, or Severe Exacerbation] @ -No Poses a threat to life or bodily function? @ -No Diagnosis/symptom? @ -Bronchospasm Acute, or Chronic, or Acute on Chronic? @ -Acute Uncomplicated (without systemic symptoms) or Complicated (systemic symptoms)? @ -Default Side effects of treatment? @ -None Exacerbation, Progression, or Severe Exacerbation] @ -No Poses a threat to life or bodily function? @ -No - Lab Data Result diagrams: 03/28/25 10:16 03/28/25 10:16 Lab Results 03/28/25 03/28/25 03/28/25 Range/Units 10:16 10:16 10:16 WBC 7.12 (4.50-10.00) 10*3/uL RBC 4.60 (4.40-5.60) 10*6/uL Hgb 13.3 (13.0-17.0) g/dL Hct 39.3 L (39.6-50.0) % MCV 85.4 (80.0-97.0) fL MCH 28.9 (27.0-32.0) pg MCHC 33.8 (32.0-37.0) g/dL Plt Count 362 (140-440) 10*3/uL MPV 9.3 L (9.5-12.2) fL Immature Gran % (Auto) 0.4 % Neutrophils % 52.1 % Lymphocytes % 32.4 % Monocytes % 10.4 % Eosinophils % 3.2 % Basophils % 1.5 % Immature Gran # 0.03 (0.00-0.04) 10*3/uL Neutrophils # 3.70 (1.80-7.70) 10*3/uL Lymphocytes # 2.31 (0.90-5.00) 10*3/uL Monocytes # 0.74 (0.20-1.00) 10*3/uL Eosinophils # 0.23 (0.04-0.35) 10*3/uL Basophils # 0.11 H (0.00-0.10) 10*3/uL Sodium 137 (137-145) mmol/L Potassium 4.4 (3.5-5.1) mmol/L Chloride 98 (98-107) mmol/L Carbon Dioxide 31 H (22-30) mmol/L Anion Gap 8 mmol/L BUN 15 (9-20) mg/dL Creatinine 0.96 (0.66-1.25) mg/dL Est GFR (CKD-EPI)AfAm >90 (>60 ml/min/1.73 sqM) Est GFR (CKD-EPI)NonAf 90 (>60 ml/min/1.73 sqM) Glucose 199 H (74-99) mg/dL Calcium 10.0 (8.4-10.2) mg/dL Magnesium 1.9 (1.6-2.3) mg/dL Total Bilirubin 0.6 (0.2-1.3) mg/dL AST 25 (17-59) U/L ALT 23 (4-49) U/L Alkaline Phosphatase 59 (38-126) U/L Troponin I <0.012 (0.000-0.034) ng/mL Total Protein 7.2 (6.3-8.2) g/dL Albumin 4.6 (3.5-5.0) g/dL Disposition Clinical Impression: Upper respiratory infection, Acute bronchospasm, Hypertensive urgency Disposition: HOME SELF-CARE Condition: Good Instructions (If sedation given, give patient instructions): Upper Respiratory Infection (ED), Hypertension (ED) Prescriptions: Losartan Potassium [Cozaar] 100 mg PO DAILY #30 tab hydroCHLOROthiazide 25 mg PO DAILY #30 tab NIFEdipine [NIFEdipine ER (Osmotic)] 90 mg PO DAILY #30 tab Is patient prescribed a controlled substance at d/c from ED?: No Referrals: None,Stated [Primary Care Provider] - 1-2 days Time of Disposition: 12:27
[2025-03-28] MEDS: hydrALAZINE HCL 20 MG/ML 1 ML VIAL IVP STA (10:24)
[2025-03-28 10:40] LABS: Basophils # (A) 0.11 10*3/uL (0.00-0.10); Basophils % (A) 1.5 %; Eosinophils # (A) 0.23 10*3/uL (0.04-0.35); Eosinophils % (A) 3.2 %; HCT 39.3 % (39.6-50.0); HGB 13.3 g/dL (13.0-17.0); Lymphocytes # (A) 2.31 10*3/uL (0.90-5.00); Lymphocytes % (A) 32.4 %; MCH 28.9 pg (27.0-32.0); MCHC 33.8 g/dL (32.0-37.0); MCV 85.4 fL (80.0-97.0); Mean Platelet Volume 9.3 fL (9.5-12.2); Monocytes # (A) 0.74 10*3/uL (0.20-1.00); Monocytes % (A) 10.4 %; Neutrophils % (A) 52.1 %; Platelet Count 362 10*3/uL (140-440); RDW 15.3 % (11.5-14.5); WBC 7.12 10*3/uL (4.50-10.00)
--- NOTE | 2025-03-28 10:41 | XR ---
EXAMINATION TYPE: XR chest 2V DATE OF EXAM: 03/28/2025 10:32 AM COMPARISON: None. CLINICAL INDICATION: Male, 54 years old with history of Chest Pain, TECHNIQUE: XR chest 2V view(s) obtained. FINDINGS: The heart size is normal. The pulmonary vasculature is normal. The lungs are clear. IMPRESSION: 1. No acute pulmonary process. [facility], , 03/28/2025 10:39 AM
[2025-03-28 10:45] LABS: ALT 23 U/L (4-49); AST 25 U/L (17-59); African American GFR (CKD) >90 (>60 ml/min/1.73 sqM); Albumin 4.6 g/dL (3.5-5.0); Alkaline Phosphatase 59 U/L (38-126); Anion Gap 8 mmol/L; Blood Urea Nitrogen 15 mg/dL (9-20); Carbon Dioxide 31 mmol/L (22-30); Chloride 98 mmol/L (98-107); Glucose 199 mg/dL (74-99); Magnesium 1.9 mg/dL (1.6-2.3); Non-African American GFR(CKD) 90 (>60 ml/min/1.73 sqM); Potassium 4.4 mmol/L (3.5-5.1); Sodium 137 mmol/L (137-145); Total Bilirubin 0.6 mg/dL (0.2-1.3); Total Protein 7.2 g/dL (6.3-8.2)
[2025-03-28] MEDS: LABETALOL SYRINGE 5 MG/ML (4 ML SYR) IVP STA (11:49)
[2025-03-28] MEDS: IPRATROPIUM-ALBUTEROL 3 ML NEB INHALATION STA (12:53)
[2025-03-28 13:00] VITALS: BP 140/98; RESP 20
[2025-03-28 16:26] VITALS: PULSE 104
== END 2025-03-28 13:09 | disposition home or self-care (01) ==
LOC: EC 09:48
DX: J06.9 Acute upper respiratory infection, unspecified (principal); I16.0 Hypertensive urgency; J98.01 Acute bronchospasm; Z87.891 Personal history of nicotine dependence
CPT/HCPCS: 36415; 94640; 93005; 80053; 83735; 84484; 85025; 71046; 99285; 96374; 96375; J0360; J1920